=== PATIENT | male | born 1970 | race Caucasian/White ===

== ENCOUNTER 2020-02-24 09:20 | Outpatient (REF) | payer OTHER, SELFPAY | END 2020-02-24 09:21 | disposition home or self-care (01) | LOC: HO.LAB 09:20 | PROVIDERS: Visit Provider Internal Medicine | DX: Z20.828 Contact with and (suspected) exposure to other viral communicable diseases (principal) | CPT/HCPCS: 87635 ==

== ENCOUNTER 2020-03-23 13:36 | Outpatient (REF) | payer OTHER, SELFPAY | END 2020-03-23 13:37 | disposition home or self-care (01) | LOC: HO.HMGCLDS 13:36 | PROVIDERS: PCP Internal Medicine; Visit Provider Internal Medicine | DX: Z20.828 Contact with and (suspected) exposure to other viral communicable diseases (principal) | CPT/HCPCS: C9803; U0003 ==

== ENCOUNTER 2020-05-17 09:15 | Outpatient (REF) | payer OTHER, SELFPAY | END 2020-05-17 09:16 | disposition home or self-care (01) | LOC: HO.LAB 09:15 | PROVIDERS: Visit Provider Internal Medicine | DX: Z20.822 Contact with and (suspected) exposure to COVID-19 (principal) | CPT/HCPCS: 36415; C9803; U0003 ==

== ENCOUNTER 2021-04-28 09:09 | Outpatient (REF) | payer OTHER, SELFPAY | END 2021-04-28 09:10 | disposition home or self-care (01) | LOC: HO.HMGCLDS 09:09 | PROVIDERS: PCP Internal Medicine; Visit Provider Internal Medicine | DX: Z20.822 Contact with and (suspected) exposure to COVID-19 (principal) | CPT/HCPCS: C9803; U0003; U0005 ==

== ENCOUNTER 2022-05-13 08:35 | Outpatient (REF) | payer OTHER, SELFPAY ==
[2022-05-13 08:48] LABS: MANUAL DIFF FLAG NO
[2022-05-13 09:34] LABS: Basophils Percent Auto 0.6 % (0-2); Eosinophils Absolute Auto 0.1 X10*3/uL (0.0-0.4); Eosinophils Percent Auto 2.8 % (0-4); Hematocrit 43.3 % (42.0-52.0); Hemoglobin 14.4 g/dl (14.0-18.0); Imm Gran Abs Auto 0.01 X10*3/uL (0.00-0.03); Imm Gran Pct Auto 0.2 % (0.0-0.4); Lymphocytes Absolute Auto 2.3 X10*3/uL (1.2-4.9); Lymphocytes Percent Auto 48.6 % (20-40); Mean Corpuscular HGB Conc 33.3 g/dl (31.0-36.0); Mean Corpuscular Hemoglobin 29.8 pg (27.0-33.0); Mean Corpuscular Volume 89.6 fL (80.0-98.0); Mean Platelet Volume 9.1 fL (9.4-12.4); Monocytes Absolute Auto 0.5 X10*3/uL (0.1-1.2); Monocytes Percent Auto 10.7 % (2-11); Neutrophils Absolute Auto 1.7 x10*3/uL (2.0-8.3); Neutrophils Percent Auto 37.1 % (45-73); Platelet Count 214 X10*3/uL (160-400); Red Blood Count 4.83 X10*6/uL (4.60-5.80); Red Cell Distribution Width 11.9 % (11.0-16.0); White Blood Count 4.7 X10*3/uL (4.8-10.8)
[2022-05-13 09:36] LABS: Appearance Urine Clear; Color Urine Yellow; Glucose Urine UA Negative (Negative); Leukocyte Esterase Urine Negative (Negative); Nitrite Urine Negative (Negative); PH 5.5 (5.0-9.0); Specific Gravity - Urine 1.015 (1.005-1.025); Urine Blood Negative (Negative); Urine Ketones Negative (Negative); Urine Protein Negative (Neg-Trace)
[2022-05-13 10:19] LABS: Alanine Aminotransferase 31 U/L (0-40); Albumin Level 4.3 g/dL (3.5-5.0); Alkaline Phosphatase 93 U/L (39-117); Anion Gap 13 (12-20); Aspartate Amino Transferase 21 U/L (5-37); Bilirubin Total 0.6 mg/dL (0.0-1.0); Blood Urea Nitrogen 20 mg/dL (9-16); Calcium 9.6 mg/dL (8.4-10.2); Carbon Dioxide 27 mmol/L (22-29); Chloride 106 mmol/L (96-108); Cholesterol 222 mg/dL; Estimated Glomerular Filt Rate > 60; Glucose Fasting 86 mg/dL (60-99); HDL Cholesterol 41 mg/dL; LDL Cholesterol Calculated 152 mg/dl; Potassium 4.4 mmol/L (3.3-5.1); Sodium 142 mmol/L (135-145); Total Protein 7.1 g/dL (6.5-8.0); Triglycerides 148 mg/dL; Uric Acid 7.5 mg/dL (3.4-7.0)
[2022-05-13 10:38] LABS: Prostate Specific Antigen Scr 0.87 ng/mL (<0.05-4.0); TSH reflex Free T4 2.85 uIU/mL (0.32-4.0); Vitamin D 25-OH Total 30.8 ng/mL (>30)
== END 2022-05-13 08:36 | disposition home or self-care (01) ==
LOC: HO.LAB 08:35
PROVIDERS: Visit Provider Internal Medicine
DX: Z00.00 Encounter for general adult medical examination without abnormal findings (principal); Z12.5 Encounter for screening for malignant neoplasm of prostate; R30.0 Dysuria; M10.9 Gout, unspecified; E78.00 Pure hypercholesterolemia, unspecified; E55.9 Vitamin D deficiency, unspecified; I10 Essential (primary) hypertension
CPT/HCPCS: 36415; 80053; 80061; 81003; 82306; 84153; 84443; 84550; 85025

== ENCOUNTER → 2022-08-10 10:30 | Outpatient (BNVA) | payer OTHER, SELFPAY | PROVIDERS: PCP Internal Medicine; Referring Provider Internal Medicine; Visit Provider Physician Assistant | DX: Z13.89 Encounter for screening for other disorder (principal) ==

== ENCOUNTER 2022-12-19 08:10 | Outpatient (REF) | payer OTHER, SELFPAY ==
[2022-12-19 11:24] LABS: Alanine Aminotransferase 15 U/L (0-40); Albumin Level 4.5 g/dL (3.5-5.0); Alkaline Phosphatase 89 U/L (39-117); Anion Gap 13 (12-20); Aspartate Amino Transferase 19 U/L (5-37); Bilirubin Total 0.8 mg/dL (0.0-1.0); Blood Urea Nitrogen 17 mg/dL (9-16); Calcium 9.9 mg/dL (8.4-10.2); Carbon Dioxide 29 mmol/L (22-29); Chloride 105 mmol/L (96-108); Cholesterol 191 mg/dL; Estimated Glomerular Filt Rate > 60; Glucose Fasting 89 mg/dL (60-99); HDL Cholesterol 45 mg/dL; LDL Cholesterol Calculated 124 mg/dl; Potassium 4.5 mmol/L (3.3-5.1); Sodium 142 mmol/L (135-145); Total Protein 7.7 g/dL (6.5-8.0); Triglycerides 114 mg/dL; Uric Acid 7.7 mg/dL (3.4-7.0)
== END 2022-12-19 08:11 | disposition home or self-care (01) ==
LOC: HO.10HDL 08:10
PROVIDERS: Visit Provider Internal Medicine
DX: M10.9 Gout, unspecified (principal); E78.00 Pure hypercholesterolemia, unspecified
CPT/HCPCS: 36415; 80053; 80061; 84550

== ENCOUNTER 2022-12-25 14:51 | Outpatient (AMB) | payer OTHER, SELFPAY ==
--- NOTE | 2022-12-25 14:53 | A.OFFPC_ITS ---
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 Required: No Accompanied by: Self / Same As Patient Allergies No Known Allergies Allergy (Verified 12/25/22 15:17) Medication List - Last Reconciled 12/25/22 by Luis Araiza MD allopurinol 100 mg PO DAILY atorvastatin 20 mg PO BEDTIME 90 days cholecalciferol (vitamin D3) 10 mcg PO DAILY Tobacco use date assessed: 12/25/22 Dental Screening Dental Screen Date: 12/25/22 Did you have a dental visit in the last 12 months?: Yes Did you have a dental problem in the last 6 months where you did not have access to dental care?: No Was dental information given to patient?: Patient has dentist HPI hyperlipidemia, gout HPI Details Patient comes in today for his follow up visit States that he feels okay He denies any headaches but reports experiencing on and off dizziness lately, with dizziness usually occurring when he is moving about too quickly He denies any chest pains, no SOB No nausea/vomiting, no abdominal pain No change in bowel habits noted Had his follow up labs done last week - to discuss his results [facility] Medical History Gout Overweight (BMI 25.0-29.9) Pure hypercholesterolemia Surgical History S/P LASIK surgery of both eyes Family History Father Stroke Mother Hyperlipidemia Other Substance abuse Social History Household Members Other:: 2 kids Housing: House Alcohol intake: current Alcohol intake frequency: a few times a week Alcohol type: beer Patient Tobacco Use Status: Never used Tobacco e-Cigarette/Vaping Use: Never Used Second Hand Smoke Exposure: No service: No Current occupational status: employed Hearing needs: No Vision needs: No Questionnaire PHQ-9 Over the last 2 weeks, how often have you been bothered by any of the following problems? 1. Little interest or pleasure in doing things: not at all 2. Feeling down, depressed, or hopeless: not at all 3. Trouble falling or staying asleep, or sleeping too much: not at all 4. Feeling tired or having little energy: not at all 5. Poor appetite or overeating: not at all 6. Feeling bad about yourself - or that you are a failure or have let yourself or your family down: not at all 7. Trouble concentrating on things, such as reading the newspaper or watching television: not at all 8. Moving or speaking so slowly that other people could have noticed. Or the opposite - being so fidgety or restless that you have been moving around a lot more than usual: not at all 9. Thoughts that you would be better off or of hurting yourself in some way: not at all Total score: 0 Depression Screening Interpretation: Negative [id number] - PHQ-9 Billing: Yes Source: Developed by Drs. Paulo Nickerson, Vianney Bush, Peewee Hameed and colleagues, with an educational eliana from [employer]. Thrive Questionnaire Date Thrive assessed: 12/25/22 I am a: Patient What is your living situation today?: I have a steady place to live Within the past 12 months, did the food you bought not last and you didn't have the money to get more?: Never true Within the past 12 months, did you worry whether your food would run out before you got money to buy more?: Never true Do you have trouble paying for medicines?: No Do you have trouble getting transportation to medical appointments?: No Do you have trouble paying your heating and electricity bill?: No Do you have trouble taking care of your child, family member or friend?: No Do you have trouble with day-to-day activities such as bathing, preparing meals, shopping, managing finances, etc.?: No Are you currently unemployed and looking for a job?: No Are you interested in more education?: No Please select the resources that you would like help with: None Currently or been in a relationship where the following occur: no concerns reported AUDIT C Alcohol Use Questionnaire (AUDIT-C) 1. How often do you have a drink containing alcohol?: Never 3. How often do you have six or more drinks on one occasion?: Never Total Score: 0 Score Reviewed/Action Taken: Yes JOSE A-7 AMB Questionnaire JOSE A-7 Date JOSE A - 7 assessed: 12/25/22 Feeling nervous, anxious, or on edge: 0 = Not at all Not being able to stop or control worryin = Not at all Worrying too much about different things: 0 = Not at all Trouble relaxin = Not at all Being so restless that it is hard to sit still: 0 = Not at all Becoming easily annoyed or irritable: 0 = Not at all Feeling afraid as if something awful might happen: 0 = Not at all Total JOSE A-7 score (0-4 normal; 5-9 mild; 10-14 moderate; 15-21 severe): 0 Source: Developed by Drs. Paulo Nickerson, Vianney Bush, Peewee Hameed and colleagues, with an educational eliana from [employer]. Review of Systems Const Denies fatigue, Denies fever(s) and Denies headache(s) ENT Denies dysphagia, Reports dizziness (on and off lately, usually occurring when he moves about too quickly), Denies headache(s), Denies neck pain, Denies odynophagia, Denies sinus pressure and Denies sore throat Card Denies chest pain, Denies rapid heart rate, Denies irregular heart rhythm, Denies palpitations and Denies dyspnea Resp Denies chest congestion, Denies cough and Denies dyspnea GI Denies abdominal pain, Denies constipation, Denies dysphagia, Denies heartburn, Denies diarrhea, Denies nausea, Denies odynophagia and Denies vomiting Denies difficulty urinating, Denies urinary frequency and Denies urinary urgency Musc Denies back pain, Denies arthralgias and Denies neck pain Skin/Breast Denies rash Neuro Reports dizziness (on and off lately, usually occurring when he moves about too quickly), Denies headache(s) and Denies paresthesias Endo Denies fatigue and Denies palpitations Physical exam (Primary Care) Vital Signs: Last Vital Signs Pulse 50 12/25/22 14:54 BP 104/72 12/25/22 14:54 Pulse Ox 97 12/25/22 14:54 Oxygen Delivery Method Room Air 12/25/22 14:54 BMI result Body Mass Index 26.4 Tobacco/Smoking Status: Tobacco use Status Tobacco use date assessed 12/25/22 12/25/22 14:56 Patient Tobacco Use Status Never used Tobacco 12/25/22 14:56 e-Cigarette/Vaping Use Never Used 12/25/22 14:56 PHQ-9: PHQ-9 Score PHQ-9: Total score 0 12/25/22 15:23 Depression Screening Interpretation: Negative Thrive Assessment: Date of Thrive Assessment Date Thrive assessed 12/25/22 12/25/22 14:56 Currently or been in a relationship where the following occur: no concerns reported Const General: no acute distress and alert HENMT Ears: TM's normal bilaterally and EAC's normal Throat: Yes posterior oropharynx normal and Yes tonsils normal (no TP congestion) Neck Neck: Yes no lymphadenopathy and Yes supple Resp Auscultation: clear to auscultation bilaterally, no rales and no wheezes Cardio Rate: regular rate Rhythm: regular rhythm Heart sounds: no murmurs GI Palpation (GI): Soft to palpation and nontender Auscultation: normal bowel sounds Skin General skin exam: no rashes or lesions noted Extrem General: Yes no clubbing, cyanosis or edema Results Reviewed Results Reviewed: Laboratory Tests 12/19/22 08:15 Sodium 142 Potassium 4.5 Creatinine 1.17 Estimated GFR > 60 Fasting Glucose 89 Uric Acid 7.7 H Calcium 9.9 AST 19 ALT 15 Triglycerides 114 Cholesterol 191 LDL Cholesterol, Calc 124 HDL Cholesterol 45 Assessment and Plan Assessment & Plan (1) Orthostatic dizziness: Code(s): R42 - Dizziness and giddiness Plan: Advised that his blood pressure today is much lower than his previous BP readings He is NOT on any Rx that could affect his blood pressure and states that he eats and drinks well/normally with no issues Will send him for EKG and echocardiogram JOSÉ ANTONIO for further evaluation (2) Pure hypercholesterolemia: Code(s): E78.00 - Pure hypercholesterolemia, unspecified Plan: Results of his labs done last week reviewed and discussed with patient - advised that his cholesterol numbers have improved slightly from earlier this year - goal again is LDL cholesterol <100 mg/dl Reinforced low cholesterol diet Continue Atorvastatin 20 mg QD Will recheck his labs and fasting lipids in 6 months for follow up (3) Gout: Code(s): M10.9 - Gout, unspecified Qualifiers: Chronicity: acute Gout etiology: idiopathic Gout site: toe Laterality: unspecified laterality Qualified Code(s): M10.079 - Idiopathic gout, unspecified ankle and foot Plan: Has had no acute gout flares Serum uric acid was at 7.7 on his labs done last week; was previously at 7.5 Reinforced low purine diet Continue Allopurinol 100 mg QD and Colchicine 0.6 mg BID Will recheck his serum uric acid level in 6 months for follow up (4) Overweight (BMI 25.0-29.9): Code(s): E66.3 - Overweight Plan: Reinforced diet/exercise as tolerated/lose weight Plan To return in 6 months for his next annual physical examination Orders: Orders CA echo transthoracic complete 12/25/22 R42 - Dizziness and giddiness, R00.1 - Bradycardia, unspecified Complete Blood Count Auto Diff 6 Months Z00.00 - Encounter for general adult medical examination without abnormal findings, R42 - Dizziness and giddiness Comprehensive [place]. Panel Fast 6 Months E78.00 - Pure hypercholesterolemia, unspecified, Z00.00 - Encounter for general adult medical examination without abnormal findings TSH reflex Free T4 6 Months E78.00 - Pure hypercholesterolemia, unspecified, Z00.00 - Encounter for general adult medical examination without abnormal findings UA CC w/rflx Micro + Cult 6 Months R30.0 - Dysuria, Z00.00 - Encounter for general adult medical examination without abnormal findings Vitamin D 25-OH Total 6 Months E55.9 - Vitamin D deficiency, unspecified, Z00.00 - Encounter for general adult medical examination without abnormal findings Prostate Specific Antigen Scr 6 Months Z00.00 - Encounter for general adult medical examination without abnormal findings ECG 12 lead EKG 12/25/22 R42 - Dizziness and giddiness, R00.1 - Bradycardia, unspecified Lipid Panel 6 Months E78.00 - Pure hypercholesterolemia, unspecified, Z00.00 - Encounter for general adult medical examination without abnormal findings Coding Level of Care Code Est Pt Level 4 (76070) Diagnoses Orthostatic dizziness R42 Pure hypercholesterolemia E78.00 Acute idiopathic gout involving toe, unspecified laterality M10.079 Chronicity: acute Gout etiology: idiopathic Gout site: toe Laterality: unspecified laterality Overweight (BMI 25.0-29.9) E66.3
[2022-12-25 14:54] VITALS: BP 104/72; PULSE 50; O2SAT 97; BMI 26.4
== END 2022-12-25 15:33 | disposition home or self-care (01) ==
PROVIDERS: Visit Provider Internal Medicine
DX: R42 Dizziness and giddiness (principal); E78.00 Pure hypercholesterolemia, unspecified; M10.079 Idiopathic gout, unspecified ankle and foot; E66.3 Overweight
CPT/HCPCS: 99214

== ENCOUNTER → 2023-02-13 14:00 | Outpatient (REF) | payer OTHER, SELFPAY ==
--- NOTE | 2023-02-13 14:04 | CA_ITS ---
Transthoracic Echocardiogram Patient (Last, First, Middle): Jay Abdalla A Gender: Male Date of : 1970 Age: 52 Procedure Date: 02/13/2023 Procedure Type: Transthoracic Echocardiogram Location: OP Height: 187.96 cm Weight: 91.17 kg BSA: 2.18 m2 Heart Rate: 51 bpm BP: 122 / 80 mmHg Energy Efficiency Specialist: PETER Referring MD: Luis Araiza MD Symptoms: R42 - Dizziness and giddiness Study Quality: Adequate ECG Rhythm: Bradycardia Conclusions: - The left ventricular systolic function is normal. The calculated ejection fraction is 59% by biplane method. - Moderate biatrial enlargement. - There is mild calcification of the aortic valve. - No obvious valvular pathology seen on this study. Findings Left Ventricle Mildly increased left ventricular cavity size. There is normal left ventricular wall thickness. The left ventricular systolic function is normal. The calculated ejection fraction is 59% by biplane method. There is no evidence of regional wall motion abnormalities. Diastolic function is normal for age. LV peak GLS -20%. Right Ventricle Mildly increased right ventricular cavity size. There is normal right ventricular systolic function. Atria Moderate biatrial enlargement. Aortic Valve There is a normal trileaflet aortic valve. There is mild calcification of the aortic valve. There is no aortic valve stenosis. There is no aortic valve regurgitation. Mitral Valve The mitral valve appears normal. There is trace mitral valve regurgitation. There is no mitral valve stenosis. Pulmonic Valve The pulmonic valve is likely normal. Tricuspid Valve Normal tricuspid valve structure. There is mild tricuspid valve regurgitation. There is no evidence of pulmonary hypertension. Great Vessels The asc aorta is normal in size. Venous The inferior vena cava is mildly dilated and collapses greater than 50% with inspiration. Pericardium/Pleural There is no evidence of pericardial effusion. Prior Study Comparison No significant change compared to prior study dated: 03/10/2015. Enlarged LV, atrial described in prior study. Recommendations, Care & Conclusions No obvious valvular pathology seen on this study. Measurements 2D Linear Measurements IVSd: 0.83 0.6-0.9/0.6-1.0 cm LVIDd: 6.29 3.9-5.3/4.2-5.9 cm LVIDd Index: 2.89 2.4-3.2/2.2-3.1 cm/m2 LVIDs: 3.84 2.0-3.6 cm LVPWd: 0.77 0.7-1.1 cm LA Diam: 4.70 2.7-3.8/3.0-4.0 cm LAIDs Index: 2.16 1.5-2.3 cm/m2 LV Mass: 252.78 67-162/88-224 g LV Mass Index: 115.95 43-95/49-115 g/m2 LVOT Diam: 2.30 3.0+(-)1.3 cm 2D Systolic Function EF 4C: 59.20 >55% EF 2C: 59.50 >55% EF BiP: 59.20 >55% Mitral Valve MV Pk E: 0.70 MV PK A: 0.67 MV Decel Time: 335.00 E/A: 1.10 E'Lateral: 11.20 E'Medial: 8.49 E/E' Med: 8.30 E/E' Lat: 6.30 PHT: 98.00 MVA PHT: 2.24 Decel Sterling: 2.10 Aortic Valve AoV Pk Terry: 1.93 AoV Mn Terry: 1.26 AoV VTI: 0.44 AoV Pk Grad: 15.00 Aov Mn Grad: 8.00 KATELYN Cont.VTI: 3.56 LVOT LVOT Pk Terry: 1.84 LVOT Mn Terry: 1.11 LVOT VTI: 0.38 LVOT Pk Grad: 14.00 LVOT Mn Grad: 6.00 LVOT Diam: 2.30 LVOT Area: 4.15 Diastolic Function MV Pk E: 0.70 MV Pk A: 0.67 E/A: 1.10 E'Medial: 8.49 E/E' Med: 8.30 E' Laterial: 11.20 E/E' Lat: 6.30 Right Ventricle TAPSE (mm): 29.50 TVS' Terry: 13.90 Tricuspid Valve TR Pk Terry: 2.59 TR Pk Grad: 27.00 RA Press: 8.00 RVSP: 35.00 Great Vessels Aorta Sinus of Valsalva: 3.80 2.0-3.5 cm Ao Asc: 3.60 2.1-3.4 cm Pulmonary Valve PV Pk Terry: 1.18 Peak PV Grad: 6.00 Updated in Other Vendor System with Status of Final Evens Calvin MD electronically signed on 02/13/2023 3:46:42 PM with status of Final
== END ==
LOC: HO.CARD 14:00
PROVIDERS: Visit Provider Internal Medicine
DX: R00.1 Bradycardia, unspecified (principal); R42 Dizziness and giddiness
CPT/HCPCS: 93005; 93306; 93356

== ENCOUNTER → 2023-02-13 14:04 | Outpatient (BNV) | payer OTHER, SELFPAY | PROVIDERS: Visit Provider Internal Medicine | DX: I36.1 Nonrheumatic tricuspid (valve) insufficiency (principal); I35.8 Other nonrheumatic aortic valve disorders | CPT/HCPCS: 93306 ==

== ENCOUNTER 2023-06-22 12:52 | Outpatient (AMB) | payer OTHER, SELFPAY ==
[2023-06-22 12:58] VITALS: BP 124/80; PULSE 52; O2SAT 97; BMI 27.3
--- NOTE | 2023-06-22 12:58 | MHC.PC.OV ---
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 Accompanied by: Self / Same As Patient Allergies No Known Allergies Allergy (Verified 06/22/23 13:16) Medication List - Last Reconciled 06/22/23 by Luis Araiza MD allopurinol 100 mg PO DAILY atorvastatin 20 mg PO BEDTIME 90 days cholecalciferol (vitamin D3) 10 mcg PO DAILY Tobacco use date assessed: 06/22/23 Dental Screening Dental Screen Date: 06/22/23 Did you have a dental visit in the last 12 months?: Yes Did you have a dental problem in the last 6 months where you did not have access to dental care?: No Was dental information given to patient?: Patient has dentist HPI pe HPI Details Patient comes in today for his annual physical examination States that he feels okay and that his previous dizziness seems to have subsided and have not been bothering him lately He denies any headaches Denies any chest pains, no SOB No nausea/vomiting, no abdominal pain No change in bowel habits noted He denies any acute urinary symptoms Relates that he has been experiencing recurrent pain and discomfort over his right shoulder and that this has been bothering him for a while now and would like to see someone to help get this checked out and addressed He does not recall any history of injury or trauma to his shoulder He had a Cologuard test done last year on 08/31/2022 that came out negative States that he went in to see GI as referred and was thinking he was going to be scheduled for a regular colonoscopy but was instead offered another Cologuard test as he reportedly has no increased risk factors He was not able to get his follow up labs done prior to his appointment today - admits that he was not even aware he had labs ordered [facility] Medical History Overweight (BMI 25.0-29.9) Pure hypercholesterolemia Gout Surgical History S/P LASIK surgery of both eyes Family History Father Stroke Mother Hyperlipidemia Other Substance abuse Social History Household Members Other:: 2 kids Housing: House Alcohol intake: current Alcohol intake frequency: a few times a week Alcohol type: beer Patient Tobacco Use Status: Never used Tobacco e-Cigarette/Vaping Use: Never Used Second Hand Smoke Exposure: No service: No Current occupational status: employed Cognitive needs: No Hearing needs: No Vision needs: No Questionnaire PHQ-9 Over the last 2 weeks, how often have you been bothered by any of the following problems? 1. Little interest or pleasure in doing things: not at all 2. Feeling down, depressed, or hopeless: not at all 3. Trouble falling or staying asleep, or sleeping too much: not at all 4. Feeling tired or having little energy: not at all 5. Poor appetite or overeating: not at all 6. Feeling bad about yourself - or that you are a failure or have let yourself or your family down: not at all 7. Trouble concentrating on things, such as reading the newspaper or watching television: not at all 8. Moving or speaking so slowly that other people could have noticed. Or the opposite - being so fidgety or restless that you have been moving around a lot more than usual: not at all 9. Thoughts that you would be better off or of hurting yourself in some way: not at all Total score: 0 Depression Screening Interpretation: Negative Depression Screening Done: Yes 72350 - PHQ-9 Billing: Yes Source: Developed by Drs. Paulo Nickerson, Vianney Bush, Peewee Hameed and colleagues, with an educational eliana from [employer]. Thrive Questionnaire Date Thrive assessed: 06/22/23 I am a: Patient What is your living situation today?: I have a steady place to live Within the past 12 months, did the food you bought not last and you didn't have the money to get more?: Never true Within the past 12 months, did you worry whether your food would run out before you got money to buy more?: Never true Do you have trouble paying for medicines?: No Do you have trouble getting transportation to medical appointments?: No Do you have trouble paying your heating and electricity bill?: No Do you have trouble taking care of your child, family member or friend?: No Do you have trouble with day-to-day activities such as bathing, preparing meals, shopping, managing finances, etc.?: No Are you currently unemployed and looking for a job?: No Are you interested in more education?: No Please select the resources that you would like help with: None Currently or been in a relationship where the following occur: no concerns reported THRIVE Score: 0 AUDIT C Alcohol Use Questionnaire (AUDIT-C) 1. How often do you have a drink containing alcohol?: Never 3. How often do you have six or more drinks on one occasion?: Never Total Score: 0 Score Reviewed/Action Taken: Yes JOSE A-7 AMB Questionnaire JOSE A-7 Date JOSE A - 7 assessed: 06/22/23 Feeling nervous, anxious, or on edge: 0 = Not at all Not being able to stop or control worryin = Not at all Worrying too much about different things: 0 = Not at all Trouble relaxin = Not at all Being so restless that it is hard to sit still: 0 = Not at all Becoming easily annoyed or irritable: 0 = Not at all Feeling afraid as if something awful might happen: 0 = Not at all Total JOSE A-7 score (0-4 normal; 5-9 mild; 10-14 moderate; 15-21 severe): 0 Source: Developed by Drs. aPulo Nickerson, Vianney Bush, Peewee Hameed and colleagues, with an educational eliana from [employer]. Review of Systems Const Denies chills, Denies fatigue, Denies fever(s), Denies headache(s), Denies malaise and Denies weakness Eyes Denies blurry vision, Denies change in vision, Denies irritation and Denies itchy eyes ENT Denies dysphagia, Denies dizziness, Denies otalgia, Denies headache(s), Denies nasal congestion, Denies neck pain, Denies odynophagia and Denies sore throat Card Denies chest pain, Denies rapid heart rate, Denies irregular heart rhythm, Denies palpitations and Denies dyspnea Resp Denies chest congestion, Denies cough, Denies dyspnea and Denies wheezing GI Denies abdominal pain, Denies bloating, Denies constipation, Denies dysphagia, Denies heartburn, Denies diarrhea, Denies nausea, Denies odynophagia and Denies vomiting Denies hematuria, Denies difficulty urinating, Denies dysuria, Denies urinary frequency and Denies urinary urgency Musc Denies back pain, Reports arthralgias (on and off in the right shoulder), Denies joint swelling, Denies muscle weakness and Denies neck pain Skin/Breast Denies change in pigmentation, Denies lesions, Denies rash and Denies unusual bruising Neuro Denies dizziness, Denies headache(s), Denies paresthesias and Denies weakness Endo Denies fatigue and Denies palpitations Aller/Immun Denies itchy eyes and Denies wheezing Physical exam (Primary Care) Vital Signs: Last Vital Signs Pulse 52 06/22/23 12:58 BP 124/80 06/22/23 12:58 Pulse Ox 97 06/22/23 12:58 Oxygen Delivery Method Room Air 06/22/23 12:58 BMI result Body Mass Index 27.3 Tobacco/Smoking Status: Tobacco use Status Tobacco use date assessed 06/22/23 06/22/23 13:05 Patient Tobacco Use Status Never used Tobacco 06/22/23 13:05 e-Cigarette/Vaping Use Never Used 06/22/23 13:05 PHQ-9: PHQ-9 Score PHQ-9: Total score 0 06/22/23 13:05 Depression Screening Interpretation: Negative Thrive Assessment: Date of Thrive Assessment Date Thrive assessed 06/22/23 06/22/23 13:05 Currently or been in a relationship where the following occur: no concerns reported Const General: no acute distress, alert and awake Orientation/consciousness: patient oriented x3 HENMT Head: Yes normocephalic and Yes atraumatic Ears: external ears normal, TM's normal bilaterally and EAC's normal General nose exam: No nasal discharge present Face and sinus: Yes normal facial exam and Yes sinuses nontender Teeth and gingiva: dentition normal Throat: Yes posterior oropharynx normal and Yes tonsils normal (no TP congestion) Eyes Eyelids: Yes eyelids normal Conjunctivae: conjunctivae normal Pupils: Equal, round and reactive pupils present EOM: EOMs intact bilaterally Neck Neck: Yes no lymphadenopathy and Yes supple Thyroid: Thyroid normal Resp Auscultation: clear to auscultation bilaterally, no rales and no wheezes Cardio Rate: regular rate Rhythm: regular rhythm Heart sounds: no murmurs GI Palpation (GI): Soft to palpation, nontender and No hepatosplenomegaly present Auscultation: normal bowel sounds General: Yes no CVA tenderness Back/Spine/Pelvis Back: no CVA tenderness Thoracic/Lumbar Spine: thoracic and lumbar spine normal to inspection Skin Lesions: no lesions Rashes: no rashes Neuro General: patient oriented x3, moves all extremities, no focal motor deficits and CN's II-XI intact bilaterally Cranial nerves: Yes Equal, round and reactive pupils present Cognition (Neuro): normal cognition Gait exam (Neuro): Normal gait present Extrem General: Yes no clubbing, cyanosis or edema Right upper extremity: shoulder/upper arm Details: tenderness Location: over the subacromial bursa Assessment and Plan Assessment & Plan (1) Annual physical exam: Code(s): Z00.00 - Encounter for general adult medical examination without abnormal findings Plan: Check labs - he is advised that his orders are still valid; states that he will try to get them done tomorrow morning He had a negative Cologuard test done last year on 08/31/2022 and with no increased risk factors, would not need a repeat Cologuard or a regular colonoscopy for a couple of years (2024 or 2025) (2) Orthostatic dizziness: Code(s): R42 - Dizziness and giddiness Plan: Currently appears resolved He was previously sent for EKG and echocardiogram for further evaluation of his recurrent dizziness His EKG came out normal, with mild bradycardia but no acute ST-T wave changes His echocardiogram done on 02/13/2023 revealed a normal LV systolic function, with calculated EF at 59%, with moderate biatrial enlargement and mild calcification of the aortic valve with NO other valvular pathology seen (3) Biatrial enlargement: Code(s): I51.7 - Cardiomegaly Plan: Will refer him to cardiology for further evaluation of his moderate biatrial enlargement seen incidentally on his echocardiogram in February 2023 Discussed possible etiologies include CAD, HTN, valvular heart disease and idiopathic dilated cardiomyopathy as well as rheumatic heart disease, isolated mitral insufficiency and constrictive pericarditis Patient is currently asymptomatic and his echocardiogram rules out several of the conditions mentioned above Have advised that I will refer him to cardiology for further evaluation and management (4) Pure hypercholesterolemia: Code(s): E78.00 - Pure hypercholesterolemia, unspecified Plan: Reinforced low cholesterol diet - goal is again an LDL cholesterol <100 mg/dl Will have patient go and get his follow up labs done JOSÉ ANTONIO Continue Atorvastatin 20 mg QD Will recheck his labs and fasting lipids in 6 months for follow up (5) Impingement of right shoulder: Code(s): M25.811 - Other specified joint disorders, right shoulder Plan: Will refer him to physical therapy for further evaluation and management Will also refer him to orthopedics for further evaluation and management of his recurrent right shoulder pain, which has been bothering him for over a year now (6) Gout: Code(s): M10.9 - Gout, unspecified Qualifiers: Gout site: toe Gout etiology: idiopathic Chronicity: acute Laterality: unspecified laterality Qualified Code(s): M10.079 - Idiopathic gout, unspecified ankle and foot Plan: Has had no acute gout flares Serum uric acid was at 7.7 on his labs done previously Reinforced low purine diet Continue Allopurinol 100 mg QD and Colchicine 0.6 mg BID Will recheck his serum uric acid level in 6 months for follow up (7) Overweight (BMI 25.0-29.9): Code(s): E66.3 - Overweight Plan: Reinforced diet/exercise as tolerated/lose weight Plan Follow up in 6 months Orders: Orders Comprehensive [place]. Panel Fast 6 Months E78.00 - Pure hypercholesterolemia, unspecified Lipid Panel 6 Months E78.00 - Pure hypercholesterolemia, unspecified Uric Acid 6 Months M10.9 - Gout, unspecified PT Evaluation and Treatment Today M25.811 - Other specified joint disorders, right shoulder Referrals Cardiology Referral I51.7 - Cardiomegaly Orthopedics Referral M25.811 - Other specified joint disorders, right shoulder Coding Level of Care Code Est Pt Prev Care 40-64y(87675) Diagnoses Annual physical exam Z00.00 Orthostatic dizziness R42 Biatrial enlargement I51.7 Pure hypercholesterolemia E78.00 Impingement of right shoulder M25.811 Acute idiopathic gout involving toe, unspecified laterality M10.079 Gout site: toe Gout etiology: idiopathic Chronicity: acute Laterality: unspecified laterality Overweight (BMI 25.0-29.9) E66.3
== END 2023-06-22 13:36 | disposition home or self-care (01) ==
PROVIDERS: PCP Internal Medicine; Visit Provider Internal Medicine
DX: Z00.00 Encounter for general adult medical examination without abnormal findings (principal); R42 Dizziness and giddiness; I51.7 Cardiomegaly; E78.00 Pure hypercholesterolemia, unspecified; M25.811 Other specified joint disorders, right shoulder; M10.079 Idiopathic gout, unspecified ankle and foot; E66.3 Overweight
CPT/HCPCS: 99396

== ENCOUNTER 2023-07-04 08:21 | Outpatient (REF) | payer OTHER, SELFPAY ==
[2023-07-04 08:40] LABS: MANUAL DIFF FLAG NO
[2023-07-04 09:14] LABS: Basophils Percent Auto 0.7 % (0-2); Eosinophils Absolute Auto 0.1 X10*3/uL (0.0-0.4); Eosinophils Percent Auto 1.9 % (0-4); Hematocrit 42.9 % (42.0-52.0); Hemoglobin 14.5 g/dl (14.0-18.0); Imm Gran Abs Auto 0.01 X10*3/uL (0.00-0.03); Imm Gran Pct Auto 0.2 % (0.0-0.4); Lymphocytes Absolute Auto 1.9 X10*3/uL (1.2-4.9); Lymphocytes Percent Auto 46.3 % (20-40); Mean Corpuscular HGB Conc 33.8 g/dl (31.0-36.0); Mean Corpuscular Hemoglobin 30.2 pg (27.0-33.0); Mean Corpuscular Volume 89.4 fL (80.0-98.0); Mean Platelet Volume 9.1 fL (9.4-12.4); Monocytes Absolute Auto 0.4 X10*3/uL (0.1-1.2); Monocytes Percent Auto 8.8 % (2-11); Neutrophils Absolute Auto 1.8 x10*3/uL (2.0-8.3); Neutrophils Percent Auto 42.1 % (45-73); Platelet Count 208 X10*3/uL (160-400); White Blood Count 4.2 X10*3/uL (4.8-10.8)
[2023-07-04 09:54] LABS: Appearance Urine Clear; Color Urine Yellow; Glucose Urine UA Negative (Negative); Leukocyte Esterase Urine Negative (Negative); Nitrite Urine Negative (Negative); PH 5.5 (5.0-9.0); Urine Blood Negative (Negative); Urine Ketones Negative (Negative); Urine Protein Negative (Neg-Trace)
[2023-07-04 09:58] LABS: Alanine Aminotransferase 18 U/L (0-40); Albumin Level 4.3 g/dL (3.5-5.0); Alkaline Phosphatase 91 U/L (39-117); Anion Gap 11 (12-20); Aspartate Amino Transferase 21 U/L (5-37); Bilirubin Total 0.8 mg/dL (0.0-1.0); Blood Urea Nitrogen 19 mg/dL (9-16); Calcium 9.8 mg/dL (8.4-10.2); Carbon Dioxide 28 mmol/L (22-29); Chloride 105 mmol/L (96-108); Cholesterol 177 mg/dL (<200); Estimated Glomerular Filt Rate > 60; Glucose Fasting 89 mg/dL (60-99); HDL Cholesterol 38 mg/dL (>40); LDL Cholesterol Calculated 117 mg/dL (<100); Potassium 4.2 mmol/L (3.3-5.1); Sodium 140 mmol/L (135-145); Total Protein 7.4 g/dL (6.5-8.0); Triglycerides 113 mg/dL (<150)
[2023-07-04 10:09] LABS: Prostate Specific Antigen Scr 0.85 ng/mL (<0.05-4.0)
[2023-07-04 10:16] LABS: TSH reflex Free T4 1.67 uIU/mL (0.32-4.0); Vitamin D 25-OH Total 37.1 ng/mL (>30)
== END 2023-07-04 08:22 | disposition home or self-care (01) ==
LOC: HO.LAB 08:21
PROVIDERS: PCP Internal Medicine; Visit Provider Internal Medicine
DX: Z00.00 Encounter for general adult medical examination without abnormal findings (principal); Z12.5 Encounter for screening for malignant neoplasm of prostate; R42 Dizziness and giddiness; E78.00 Pure hypercholesterolemia, unspecified; R30.0 Dysuria; E55.9 Vitamin D deficiency, unspecified
CPT/HCPCS: 36415; 80053; 80061; 81003; 82306; 84153; 84443; 85025

== ENCOUNTER 2023-07-26 06:23 | Outpatient (REF) | payer OTHER, SELFPAY | END 2023-07-26 06:24 | disposition home or self-care (01) | LOC: HO.HOSX 06:23 | PROVIDERS: Visit Provider Physician Assistant | DX: Z13.89 Encounter for screening for other disorder (principal) ==

== ENCOUNTER 2023-08-07 07:00 | Outpatient (RCR) | payer OTHER, SELFPAY ==
--- NOTE | 2023-07-16 12:37 | MHC.PT.EP ---
[facility] [place] [facility] [place] [facility] [place] [facility] [address] Jim Odonnell [address] [phone] F: [phone] F: [phone] F: [phone] F: [phone] Physical Therapy Plan of Care Date of Evaluation: 07/16/23 Date of Surgery: Diagnosis: RIGHT SHOULDER IMPINGEMENT Assessment: 53 YO MALE REF TO PT FOR Rt SHOULDER IMPINGEMENT- HE DENIES TRAUMA/INJURY. 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 HE ENJOYS RUNNING/GOLFING/RESISTIVE EXER. HE IS RIGHT HAND DOMINANT. THE Pt HAS Rt SH SORENESS W END RANGE SH FLEX AND IR POSTERIORLY- HE HAS LIMITED CERV AROM AND (+) SOFT TISSUE IRRIT IN Rt UT/ SCAP REGION AND CERV PS MM. HE WOULD BENEFIT FROM PT TO ADDRESS THE ABOVE FINDINGS, REDUCE CERVICAL AND Rt SH COMPONENTS AND DEV SELF-SX MGMT TECHN. 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 Manual therapy to restore motion and function. Therapeutic exercise to improve strength and flexibility. Neuromuscular re-education for posture and balance. Therapeutic activities to return to functional activities of daily living. Electronically signed by: QUYEN BAIN,PT Please sign and return to therapist. Thank you for your referral.
--- NOTE | 2023-09-28 09:29 | MHC.PT.DC ---
[facility] [place] Office [place] [facility] [place] [facility] [address] Jim Odonnell 140 [facility] [phone] F: [phone] F: [phone] F: [phone] F: [phone] Physical Therapy Discharge Report Diagnosis: RIGHT SHOULDER IMPINGEMENT Date of Surgery: Date of Evaluation: 07/16/23 Date of Discharge: 09/28/23 Treatments to Date: 7 Cancellations to Date: 0 No Shows to Date: 0 Discharge Status: Achieved Goals Improved Function Independent with HEP Discharge Summary: CLYDE PROGRESSED NICELY IN PT- HE HAS BEEN ABLE TO RESUME ADLS, AND GOLF, W/O EXACERBATING SXS. HE IS INDEP AND COMPLIANT W HEP - HE MET HIS PT GOALS AND IS D/C THIS DATE. Electronically signed by: QUYEN BAIN,PT Please sign and return to therapist. Thank you for your referral.
== END 2023-09-28 09:31 | disposition home or self-care (01) ==
LOC: HO.PT 07:00
PROVIDERS: PCP Internal Medicine; Visit Provider Internal Medicine
DX: M25.811 Other specified joint disorders, right shoulder (principal)
CPT/HCPCS: 97110; 97140; 97162

== ENCOUNTER → 2023-08-17 11:18 | Outpatient (BNV) | payer OTHER, SELFPAY | PROVIDERS: PCP Internal Medicine; Visit Provider Internal Medicine | DX: Z85.3 Personal history of malignant neoplasm of breast (principal) | CPT/HCPCS: 99203 ==

== ENCOUNTER 2023-08-28 08:14 | Outpatient (AMB) | payer OTHER, SELFPAY ==
[2023-08-28 08:31] VITALS: BP 120/68; PULSE 51; O2SAT 98; BMI 25.7
--- NOTE | 2023-08-28 08:31 | A.OFFVIS_ITS ---
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 Patient himself does not have any history of cardiac issues including coronary disease,myocardial infarction or cardiomyopathy. It seems that he was getting orthostatic dizziness type symptoms. That apparently workup. Otherwise, no anginal-type symptoms or in fact anything cardiac related. He states he is extremely active at baseline including several activities like walking out in the gym, bicycling, hiking, golfing essentially every day. No history of obstructive sleep apnea. [facility] Medical History Overweight (BMI 25.0-29.9) Pure hypercholesterolemia Gout Surgical History S/P LASIK surgery of both eyes Family History Father Stroke Mother Hyperlipidemia Other Substance abuse Social History (Updated 08/17/23 @ 11:42 by Chelsey Mtz) Household Members: Spouse and Family Household Members Other:: 2 kids Housing: House Alcohol intake: current Alcohol intake frequency: a few times a week Alcohol type: beer Patient Tobacco Use Status: Never used Tobacco e-Cigarette/Vaping Use: Never Used Second Hand Smoke Exposure: No service: No Current occupational status: employed Cognitive needs: No Hearing needs: No Vision needs: No Review of Systems Const Denies weakness ENT Denies dizziness Card Denies chest pain, Denies chest pain with activity, Denies syncope, Denies rapid heart rate, Denies pedal edema, Denies edema, Denies leg edema, Denies lightheadedness, Denies palpitations, Denies dyspnea, Denies dyspnea on exertion and Denies orthopnea Resp Denies cough, Denies dyspnea and Denies dyspnea on exertion GI Denies hematochezia and Denies change in stool character Musc Denies abnormal gait, Denies muscle cramps, Denies muscle weakness, Denies numbness, Denies radiating pain into limb and Denies tingling Neuro Denies abnormal gait, Denies dizziness, Denies syncope, Denies numbness, Denies tingling and Denies weakness Endo Denies palpitations Physical Exam Vital Signs: Last Vital Signs Pulse 51 08/28/23 08:31 BP 120/68 08/28/23 08:31 Pulse Ox 98 08/28/23 08:31 Oxygen Delivery Method Room Air 08/28/23 08:31 BMI result Body Mass Index 25.7 Const General: comfortable and no acute distress Orientation/consciousness: patient oriented x3 HEENT Other: Unremarkable Head: Yes normal to inspection Neck Neck: Yes normal visual inspection Chest Chest palpation & inspection: normal inspection of the chest Resp Auscultation: clear to auscultation bilaterally Cardio Palpation: normal PMI Heart sounds: S1 normal heart sound present, S2 normal heart sound present, no gallops, no murmurs and no rubs GI Palpation (GI): Soft to palpation Back/Spine/Pelvis Other: unremarkable Skin General skin exam: no rashes or lesions noted Neuro General: patient oriented x3 Extrem General: Yes normal to inspection Psych Mental Status: mental status grossly normal Office Procedures EKG Details: EKG with sinus bradycardia at 46/[place]. [id number], Complete Assessment & Plan Assessment & Plan (1) Dizziness: Code(s): R42 - Dizziness and giddiness Category: Medical (2) Bradycardia: Code(s): R00.1 - Bradycardia, unspecified Category: Medical (3) Biatrial enlargement: Code(s): I51.7 - Cardiomegaly Category: Medical Plan Baseline EKG had sinus bradycardia; less likely low atrial or junctional. Echocardiogram with LVEF of 59%. Normal peak global longitudinal strain. Normal diastolic function. Moderate biatrial enlargement. Of note, even a prior echocardiogram from 2015 had biatrial enlargement. Both the sinus bradycardia as well as biatrial enlargement could be related to athletic lifestyle. The dizziness itself seems orthostatic. We will get an Holter monitor for further evaluation. Also perform an exercise stress test to assess chronotropic competence. Follow-up after the above. Orders: Orders CA stress test Today R00.1 - Bradycardia, unspecified, R42 - Dizziness and giddiness ECG 3 day holter monitor Today R42 - Dizziness and giddiness
== END 2023-08-28 08:56 | disposition home or self-care (01) ==
PROVIDERS: Visit Provider Internal Medicine
DX: R42 Dizziness and giddiness (principal); R00.1 Bradycardia, unspecified; I51.7 Cardiomegaly
CPT/HCPCS: 93010; 99214

== ENCOUNTER → 2023-08-28 08:14 | Outpatient (BNVA) | payer OTHER, SELFPAY | PROVIDERS: Visit Provider Internal Medicine | DX: R42 Dizziness and giddiness (principal); R00.1 Bradycardia, unspecified; I51.7 Cardiomegaly | CPT/HCPCS: 93005 ==

== ENCOUNTER → 2023-09-07 09:30 | Outpatient (REF) | payer OTHER, SELFPAY ==
--- NOTE | 2023-09-07 09:34 | CA_ITS ---
Acquisition Time: 2023-09-07 09:44:36 Total Exercise Time: 00:14:53 Test Indications: SYNCOPE Medications: SEE H Protocol: SHONDA Max HR: 160 BPM 96% of Pred: 165 BPM Max BP: 170/078 mmHG Max Work Load: 17.2 METS Exercise stress test exercise 14 min 53 sec of Shonda protocol achieving 96% MPHR, 17.2 METS, wihtuot dizizness, shortness of breath, chest discomfort, without arrhythmias, with normotensive response to exercise, with normal chornotropic response, without EKG changes. Test reviewed with Dr. Simpson. Referred By: Evens Simpson Overread By: Alana Clemons
--- NOTE | 2023-09-07 09:34 | HM_ITS ---
Conclusion: 1. Patient was monitored for total period of 3 days and 18 hours 2. Baseline was normal sinus rhythm with average heart of 61 beats per minute 3. No significant pauses noted with frequent sinus bradycardia noted with 52% of time heart rate below 60 beats per minute 4. Rare ectopy noted 5. No patient reported events MTDD
== END ==
LOC: HO.CARD 09:30
PROVIDERS: PCP Internal Medicine; Visit Provider Internal Medicine
DX: R00.1 Bradycardia, unspecified (principal); R42 Dizziness and giddiness
CPT/HCPCS: 93017; 93242

== ENCOUNTER → 2023-09-07 09:34 | Outpatient (BNV) | payer OTHER, SELFPAY | PROVIDERS: PCP Internal Medicine; Visit Provider Nurse Practitioner | DX: R00.1 Bradycardia, unspecified (principal) | CPT/HCPCS: 93016; 93018; 93244 ==

== ENCOUNTER 2024-01-04 13:32 | Outpatient (AMB) | payer OTHER, SELFPAY ==
[2024-01-04 13:38] VITALS: BP 118/78; PULSE 59; O2SAT 96; BMI 26.1
--- NOTE | 2024-01-04 13:38 | A.OFFPC_ITS ---
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 Accompanied by: Self / Same As Patient Allergies No Known Allergies Allergy (Verified 01/04/24 13:45) Medication List - Last Reconciled 01/04/24 by Luis Araiza MD allopurinol 100 mg PO DAILY atorvastatin 20 mg PO BEDTIME 90 days cholecalciferol (vitamin D3) 10 mcg PO DAILY Tobacco use date assessed: 01/04/24 Dental Screening Dental Screen Date: 01/04/24 Did you have a dental visit in the last 12 months?: Yes Did you have a dental problem in the last 6 months where you did not have access to dental care?: No Was dental information given to patient?: Patient has dentist HPI hyperlipidemia, gout HPI Details Patient comes in today for his follow up visit States that he feels okay He denies any headaches or dizziness Denies any chest pains, no SOB No nausea/vomiting, no abdominal pain No change in bowel habits noted He was seen by hematology for his leucopenia a few months ago and was advised that in the absence of any concerning symptoms and negative work ups, he has chronic leucopenia, which is benign and he does not need any further work ups and can just have his CBC monitored routinely going forward He was also seen by cardiology a few months ago for the biatrial enlargement seen on his recent echocardiogram He had stress testing and extended Holter monitoring done a few months ago, both of which came out normal He has a follow up appointment with cardiology in a few weeks to discuss any further recommendations He would also like to know how he did on his labs done back in June 2023, a few weeks after he was last seen for his annual [facility] Medical History (Updated 01/04/24 @ 14:05 by Luis Araiza MD) Biatrial enlargement Leucopenia Overweight (BMI 25.0-29.9) Pure hypercholesterolemia Gout Surgical History S/P LASIK surgery of both eyes Family History Father Stroke Mother Hyperlipidemia Other Substance abuse Social History Household Members: Spouse and Family Household Members Other:: 2 kids Housing: House Alcohol intake: current Alcohol intake frequency: a few times a week Alcohol type: beer Patient Tobacco Use Status: Never used Tobacco e-Cigarette/Vaping Use: Never Used Second Hand Smoke Exposure: No service: No Current occupational status: employed Cognitive needs: No Hearing needs: No Vision needs: No Questionnaire PHQ-9 Over the last 2 weeks, how often have you been bothered by any of the following problems? 1. Little interest or pleasure in doing things: not at all 2. Feeling down, depressed, or hopeless: not at all 3. Trouble falling or staying asleep, or sleeping too much: not at all 4. Feeling tired or having little energy: not at all 5. Poor appetite or overeating: not at all 6. Feeling bad about yourself - or that you are a failure or have let yourself or your family down: not at all 7. Trouble concentrating on things, such as reading the newspaper or watching television: not at all 8. Moving or speaking so slowly that other people could have noticed. Or the opposite - being so fidgety or restless that you have been moving around a lot more than usual: not at all 9. Thoughts that you would be better off or of hurting yourself in some way: not at all Total score: 0 Depression Screening Interpretation: Negative Depression Screening Done: Yes 13442 - PHQ-9 Billing: Yes Source: Developed by Drs. Paulo Nickerson, Vianney Bush, Peewee Hameed and colleagues, with an educational eliana from [employer]. Thrive Questionnaire Date Thrive assessed: 01/04/24 I am a: Patient What is your living situation today?: I have a steady place to live Within the past 12 months, did the food you bought not last and you didn't have the money to get more?: Never true Within the past 12 months, did you worry whether your food would run out before you got money to buy more?: Never true Do you have trouble paying for medicines?: No Do you have trouble getting transportation to medical appointments?: No Do you have trouble paying your heating and electricity bill?: No Do you have trouble taking care of your child, family member or friend?: No Do you have trouble with day-to-day activities such as bathing, preparing meals, shopping, managing finances, etc.?: No Are you currently unemployed and looking for a job?: No Are you interested in more education?: No Please select the resources that you would like help with: None Currently or been in a relationship where the following occur: No concerns reported THRIVE Score: 0 AUDIT C Alcohol Use Questionnaire (AUDIT-C) 1. How often do you have a drink containing alcohol?: Never 3. How often do you have six or more drinks on one occasion?: Never Total Score: 0 Score Reviewed/Action Taken: Yes JOSE A-7 AMB Questionnaire JOSE A-7 Date JOSE A - 7 assessed: 01/04/24 Feeling nervous, anxious, or on edge: 0 = Not at all Not being able to stop or control worryin = Not at all Worrying too much about different things: 0 = Not at all Trouble relaxin = Not at all Being so restless that it is hard to sit still: 0 = Not at all Becoming easily annoyed or irritable: 0 = Not at all Feeling afraid as if something awful might happen: 0 = Not at all Total JOSE A-7 score (0-4 normal; 5-9 mild; 10-14 moderate; 15-21 severe): 0 Source: Developed by Drs. Paulo Nickerson, Vianney Bush, Peewee Hameed and colleagues, with an educational eliana from [employer]. Review of Systems Const Denies chills, Denies fatigue, Denies fever(s) and Denies headache(s) ENT Denies dysphagia, Denies dizziness, Denies otalgia, Denies headache(s), Denies neck pain, Denies odynophagia and Denies sore throat Card Denies chest pain, Denies irregular heart rhythm, Denies palpitations and Denies dyspnea Resp Denies cough, Denies dyspnea and Denies wheezing GI Denies abdominal pain, Denies constipation, Denies dysphagia, Denies heartburn, Denies diarrhea, Denies nausea, Denies odynophagia and Denies vomiting Denies difficulty urinating, Denies dysuria and Denies urinary frequency Musc Denies back pain, Denies arthralgias (states that his previous right shoulder pain has improved with PT) and Denies neck pain Skin/Breast Denies rash Neuro Denies dizziness, Denies headache(s) and Denies paresthesias Endo Denies fatigue and Denies palpitations Aller/Immun Denies wheezing Physical exam (Primary Care) Vital Signs: Last Vital Signs Pulse 59 01/04/24 13:38 BP 118/78 01/04/24 13:38 Pulse Ox 96 01/04/24 13:38 Oxygen Delivery Method Room Air 01/04/24 13:38 BMI result Body Mass Index 26.1 Tobacco/Smoking Status: Tobacco use Status Tobacco use date assessed 01/04/24 01/04/24 13:43 Patient Tobacco Use Status Never used Tobacco 01/04/24 13:43 e-Cigarette/Vaping Use Never Used 01/04/24 13:43 PHQ-9: PHQ-9 Score PHQ-9: Total score 0 01/04/24 13:43 Depression Screening Interpretation: Negative Thrive Assessment: Date of Thrive Assessment Date Thrive assessed 01/04/24 01/04/24 13:43 Currently or been in a relationship where the following occur: No concerns reported Const General: no acute distress and alert HENMT Ears: TM's normal bilaterally and EAC's normal Throat: Yes posterior oropharynx normal and Yes tonsils normal (no TP congestion) Neck Neck: Yes no lymphadenopathy and Yes supple Thyroid: Thyroid normal Resp Auscultation: clear to auscultation bilaterally, no rales and no wheezes Cardio Rate: regular rate Rhythm: regular rhythm Heart sounds: no murmurs GI Palpation (GI): Soft to palpation and nontender Auscultation: normal bowel sounds General: Yes no CVA tenderness Back/Spine/Pelvis Back: no CVA tenderness Thoracic/Lumbar Spine: No lumbar spinal tenderness Skin Rashes: no rashes Extrem General: Yes no clubbing, cyanosis or edema Results Reviewed Results Reviewed: Laboratory Tests 07/04/23 07/04/23 08:39 08:40 WBC 4.2 L Hgb 14.5 Hct 42.9 Plt Count 208 Sodium 140 Potassium 4.2 Creatinine 0.98 Estimated GFR > 60 Fasting Glucose 89 Calcium 9.8 AST 21 ALT 18 Triglycerides 113 Cholesterol 177 LDL Cholesterol, Calc 117 H HDL Cholesterol 38 L PSA Screen 0.85 25-OH Vitamin D Total 37.1 TSH 1.67 Ur Specific [place] 1.020 Urine Protein Negative Urine Glucose (UA) Negative Urine Blood Negative Urine Nitrite Negative Ur Leukocyte Esterase Negative Assessment and Plan Assessment & Plan (1) Pure hypercholesterolemia: Code(s): E78.00 - Pure hypercholesterolemia, unspecified Plan: Results of his labs done back in June 2023 reviewed and discussed with patient - his LDL cholesterol is still at 117 mg/dl most recently Reinforced low cholesterol diet - goal is again an LDL cholesterol <100 mg/dl Continue Atorvastatin 20 mg QD Will recheck his labs and fasting lipids in 6 months for follow up (2) Gout: Code(s): M10.9 - Gout, unspecified Qualifiers: Gout site: toe Gout etiology: idiopathic Chronicity: acute Laterality: unspecified laterality Qualified Code(s): M10.079 - Idiopathic gout, unspecified ankle and foot Plan: He has had no acute gout flares lately Serum uric acid was at 7.7 on his labs done previously Reinforced low purine diet Continue Allopurinol 100 mg QD and Colchicine 0.6 mg BID Will recheck his serum uric acid level in 6 months for follow up (3) Leucopenia: Comment: WBC count has been slightly low for over 10 years Code(s): D72.819 - Decreased white blood cell count, unspecified Qualifiers: Leukopenia type: unspecified Qualified Code(s): D72.819 - Decreased white blood cell count, unspecified Plan: Chronic; stable He was seen and evaluated by hematology a few months ago and advised that he has chronic leucopenia, which is benign and in the absence of any concerning symptoms, will just need to continue monitoring his CBC yearly No interventions or further work ups are recommended at this time (4) Biatrial enlargement: Code(s): I51.7 - Cardiomegaly Plan: He was seen by cardiology for further evaluation of his moderate biatrial enlargement seen incidentally on his echocardiogram in February 2023 Patient has been asymptomatic so far He underwent stress testing and extended Holter monitoring a few months ago and both came out normal/negative He has a follow up appt with cardiology in a few weeks to discuss his results and any other potential recommendations (5) Orthostatic dizziness: Code(s): R42 - Dizziness and giddiness Plan: This appears to have resolved with no recent recurrence His EKG came out normal, with mild bradycardia but no acute ST-T wave changes His echocardiogram done on 02/13/2023 revealed a normal LV systolic function, with calculated EF at 59%, with moderate biatrial enlargement and mild calcification of the aortic valve with NO other valvular pathology seen He was seen and evaluated further for these by cardiology and work ups so far have been negative (6) Impingement of right shoulder: Code(s): M25.811 - Other specified joint disorders, right shoulder Plan: This has also resolved with physical therapy and has not recurred since (7) Overweight (BMI 25.0-29.9): Code(s): E66.3 - Overweight Plan: Reinforced diet/exercise as tolerated/lose weight Plan To return in 6 months for his next annual physical examination Orders: Orders Vitamin D 25-OH Total 6 Months E55.9 - Vitamin D deficiency, unspecified, Z00.00 - Encounter for general adult medical examination without abnormal findings Prostate Specific Antigen Scr 6 Months Z00.00 - Encounter for general adult medical examination without abnormal findings Complete Blood Count Auto Diff 6 Months D64.9 - Anemia, unspecified, Z00.00 - Encounter for general adult medical examination without abnormal findings Comprehensive [place]. Panel Fast 6 Months E78.00 - Pure hypercholesterolemia, unspecified, Z00.00 - Encounter for general adult medical examination without abnormal findings Lipid Panel 6 Months E78.00 - Pure hypercholesterolemia, unspecified, Z00.00 - Encounter for general adult medical examination without abnormal findings UA CC w/rflx Micro + Cult 6 Months R30.0 - Dysuria, Z00.00 - Encounter for general adult medical examination without abnormal findings TSH reflex Free T4 6 Months E78.00 - Pure hypercholesterolemia, unspecified, Z00.00 - Encounter for general adult medical examination without abnormal findings Uric Acid 6 Months M10.9 - Gout, unspecified Coding Level of Care Code Est Pt Level 4 (02657) Diagnoses Pure hypercholesterolemia E78.00 Acute idiopathic gout involving toe, unspecified laterality M10.079 Gout site: toe Gout etiology: idiopathic Chronicity: acute Laterality: unspecified laterality Leukopenia, unspecified type D72.819 Leukopenia type: unspecified Biatrial enlargement I51.7 Orthostatic dizziness R42 Impingement of right shoulder M25.811 Overweight (BMI 25.0-29.9) E66.3
== END 2024-01-04 13:59 | disposition home or self-care (01) ==
PROVIDERS: Visit Provider Internal Medicine
DX: E78.00 Pure hypercholesterolemia, unspecified (principal); M10.079 Idiopathic gout, unspecified ankle and foot; D72.819 Decreased white blood cell count, unspecified; I51.7 Cardiomegaly; R42 Dizziness and giddiness; M25.811 Other specified joint disorders, right shoulder; E66.3 Overweight
CPT/HCPCS: 99214

== ENCOUNTER 2024-01-30 13:36 | Outpatient (AMB) | payer OTHER, SELFPAY ==
[2024-01-30 13:50] VITALS: BP 110/60; PULSE 58; BMI 26.9
--- NOTE | 2024-01-30 13:50 | A.OFFVIS_ITS ---
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 Recently seen in consultation regarding biatrial enlargement on echocardiogram. Patient himself does not have any history of cardiac issues including coronary disease,myocardial infarction or cardiomyopathy. It seems that he was getting orthostatic dizziness type symptoms. That apparently workup. Otherwise, no anginal-type symptoms or in fact anything cardiac related. He states he is extremely active at baseline including several activities like walking out in the gym, bicycling, hiking, golfing essentially every day. No history of obstructive sleep apnea. Since last seen, he states he feels fine. No cardiac complaints whatsoever. [facility] Medical History (Updated 01/04/24 @ 14:05 by Luis Araiza MD) Biatrial enlargement Leucopenia Overweight (BMI 25.0-29.9) Pure hypercholesterolemia Gout Surgical History S/P LASIK surgery of both eyes Family History Father Stroke Mother Hyperlipidemia Other Substance abuse Social History Household Members: Spouse and Family Household Members Other:: 2 kids Housing: House Alcohol intake: current Alcohol intake frequency: a few times a week Alcohol type: beer Patient Tobacco Use Status: Never used Tobacco e-Cigarette/Vaping Use: Never Used Second Hand Smoke Exposure: No service: No Current occupational status: employed Cognitive needs: No Hearing needs: No Vision needs: No Review of Systems Const Denies chills, Denies fatigue, Denies fever(s), Denies weight gain and Denies weight loss ENT Denies dizziness Card Denies chest pain, Denies leg edema, Denies lightheadedness, Denies palpitations, Denies dyspnea on exertion, Denies orthopnea and Denies other Resp Denies cough and Denies dyspnea on exertion GI Denies hematochezia and Denies change in stool character Musc Denies abnormal gait, Denies muscle weakness, Denies numbness, Denies radiating pain into limb and Denies tingling Neuro Denies abnormal gait, Denies dizziness, Denies numbness and Denies tingling Endo Denies fatigue and Denies palpitations Physical Exam Vital Signs: Last Vital Signs Pulse 58 01/30/24 13:50 BP 110/60 01/30/24 13:50 BMI result Body Mass Index 26.9 Const General: comfortable and no acute distress Orientation/consciousness: patient oriented x3 HEENT Other: Unremarkable Head: Yes normal to inspection Neck Neck: Yes normal visual inspection Chest Chest palpation & inspection: normal inspection of the chest Resp Auscultation: clear to auscultation bilaterally Cardio Palpation: normal PMI Heart sounds: S1 normal heart sound present, S2 normal heart sound present, no gallops, no murmurs and no rubs GI Palpation (GI): Soft to palpation Back/Spine/Pelvis Other: unremarkable Skin General skin exam: no rashes or lesions noted Neuro General: patient oriented x3 Extrem General: Yes normal to inspection Psych Mental Status: mental status grossly normal Assessment & Plan Assessment & Plan (1) Bradycardia: Code(s): R00.1 - Bradycardia, unspecified Category: Medical (2) Biatrial enlargement: Code(s): I51.7 - Cardiomegaly Category: Medical Plan Cardiac studies reviewed. Baseline EKG had sinus bradycardia; less likely low atrial or junctional. Echocardiogram with LVEF of 59%. Normal peak global longitudinal strain. Normal diastolic function. Moderate biatrial enlargement. Of note, even a prior echocardiogram from 2015 had biatrial enlargement. In the Holter monitor, underlying rhythm is sinus with an average rate of 61/Min. Frequent sinus bradycardia noted. In the exercise stress test, able to do 17.2 Mets without any symptoms. Normal chronotropic response. Overall, sinus bradycardia as well as the biatrial enlargement likely related to athletic lifestyle. No specific management for the above. Otherwise, no restrictions either. We will check him back in 1 year. Total time spent including review of data, counseling, documentation, coordination of care-32 minutes. Coding Level of Care Code Est Pt Level 4 (79551) Diagnoses Bradycardia R00.1 Biatrial enlargement I51.7
== END 2024-01-30 14:13 | disposition home or self-care (01) ==
PROVIDERS: PCP Internal Medicine; Visit Provider Internal Medicine
DX: R00.1 Bradycardia, unspecified (principal); I51.7 Cardiomegaly
CPT/HCPCS: 99214

== ENCOUNTER → 2024-01-30 13:36 | Outpatient (BNVA) | payer OTHER, SELFPAY | PROVIDERS: PCP Internal Medicine; Visit Provider Internal Medicine ==

== ENCOUNTER 2024-06-24 07:47 | Outpatient (REF) | payer OTHER, SELFPAY ==
[2024-06-24 07:59] LABS: MANUAL DIFF FLAG NO
[2024-06-24 08:14] LABS: Basophils Percent Auto 0.4 % (0-2); Eosinophils Absolute Auto 0.1 X10*3/uL (0.0-0.4); Eosinophils Percent Auto 2.2 % (0-4); Hematocrit 44.7 % (42.0-52.0); Hemoglobin 15.1 g/dl (14.0-18.0); Imm Gran Abs Auto 0.01 X10*3/uL (0.00-0.03); Imm Gran Pct Auto 0.2 % (0.0-0.4); Lymphocytes Absolute Auto 2.1 X10*3/uL (1.2-4.9); Lymphocytes Percent Auto 41.6 % (20-40); Mean Corpuscular HGB Conc 33.8 g/dl (31.0-36.0); Mean Corpuscular Volume 88.7 fL (80.0-98.0); Mean Platelet Volume 8.8 fL (9.4-12.4); Monocytes Absolute Auto 0.5 X10*3/uL (0.1-1.2); Monocytes Percent Auto 10.3 % (2-11); Neutrophils Absolute Auto 2.3 x10*3/uL (2.0-8.3); Neutrophils Percent Auto 45.3 % (45-73); Platelet Count 218 X10*3/uL (160-400); Red Blood Count 5.04 X10*6/uL (4.60-5.80)
[2024-06-24 08:18] LABS: Appearance Urine Clear; Color Urine Yellow; Glucose Urine UA Negative (Negative); Leukocyte Esterase Urine Negative (Negative); Nitrite Urine Negative (Negative); Urine Blood Negative (Negative); Urine Ketones Negative (Negative); Urine Protein Negative (Neg-Trace)
[2024-06-24 09:04] LABS: Alanine Aminotransferase 31 U/L (0-40); Albumin Level 4.4 g/dL (3.5-5.0); Alkaline Phosphatase 92 U/L (39-117); Anion Gap 12 (12-20); Aspartate Amino Transferase 25 U/L (5-37); Bilirubin Total 0.6 mg/dL (0.0-1.0); Blood Urea Nitrogen 15 mg/dL (9-16); Calcium 9.5 mg/dL (8.4-10.2); Carbon Dioxide 28 mmol/L (22-29); Chloride 107 mmol/L (96-108); Cholesterol 210 mg/dL (<200); Estimated Glomerular Filt Rate > 60; Glucose Fasting 86 mg/dL (60-99); HDL Cholesterol 38 mg/dL (>40); LDL Cholesterol Calculated 135 mg/dL (<100); Potassium 4.4 mmol/L (3.3-5.1); Sodium 143 mmol/L (135-145); Total Protein 7.9 g/dL (6.5-8.0); Triglycerides 187 mg/dL (<150); Uric Acid 7.5 mg/dL (3.4-7.0)
[2024-06-24 09:19] LABS: Prostate Specific Antigen Scr 1.02 ng/mL (<0.05-4.0)
[2024-06-24 09:20] LABS: TSH reflex Free T4 2.39 uIU/mL (0.32-4.0); Vitamin D 25-OH Total 37.4 ng/mL (>30)
== END 2024-06-24 07:48 | disposition home or self-care (01) ==
LOC: HO.LAB 07:47
PROVIDERS: PCP Internal Medicine; Visit Provider Internal Medicine
DX: Z00.00 Encounter for general adult medical examination without abnormal findings (principal); D64.9 Anemia, unspecified; E78.00 Pure hypercholesterolemia, unspecified; M10.9 Gout, unspecified; E55.9 Vitamin D deficiency, unspecified; R30.0 Dysuria; Z12.5 Encounter for screening for malignant neoplasm of prostate
CPT/HCPCS: 36415; 80053; 80061; 81003; 82306; 84153; 84443; 84550; 85025

== ENCOUNTER 2024-06-25 13:47 | Outpatient (AMB) | payer OTHER, SELFPAY ==
[2024-06-25 14:16] VITALS: BP 110/74; PULSE 53; O2SAT 94; BMI 28.8
--- NOTE | 2024-06-25 14:16 | A.OFFPC_ITS ---
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 Required: No Accompanied by: Self / Same As Patient Allergies No Known Allergies Allergy (Verified 06/25/24 14:34) Medication List - Last Reconciled 06/25/24 by Luis Araiza MD allopurinol 100 mg PO DAILY atorvastatin 20 mg PO BEDTIME 90 days cholecalciferol (vitamin D3) 10 mcg PO DAILY Tobacco use date assessed: 06/25/24 Dental Screening Dental Screen Date: 06/25/24 Did you have a dental visit in the last 12 months?: Yes Did you have a dental problem in the last 6 months where you did not have access to dental care?: No Was dental information given to patient?: Patient has dentist HPI Annual P.E HPI Details Patient comes in today for his annual physical examination States that he feels okay He denies any headaches or dizziness Denies any chest pains, no shortness of breath No nausea/vomiting, no abdominal pain No change in bowel habits noted He denies any acute urinary symptoms He had his follow-up labs done yesterday - to discuss his results He had a negative Cologuard test done back in September 2022 and will be due for repeat Cologuard testing or screening colonoscopy in September of this year [facility] Medical History Biatrial enlargement Leucopenia Overweight (BMI 25.0-29.9) Pure hypercholesterolemia Gout Surgical History S/P LASIK surgery of both eyes Family History Father Stroke Mother Hyperlipidemia Other Substance abuse Social History Household Members: Spouse and Family Household Members Other:: 2 kids Housing: House Alcohol intake: current Alcohol intake frequency: a few times a week Alcohol type: beer Patient Tobacco Use Status: Never used Tobacco e-Cigarette/Vaping Use: Never Used Second Hand Smoke Exposure: No service: No Current occupational status: employed Cognitive needs: No Hearing needs: No Vision needs: No Questionnaire PHQ-9 Over the last 2 weeks, how often have you been bothered by any of the following problems? 1. Little interest or pleasure in doing things: not at all 2. Feeling down, depressed, or hopeless: not at all 3. Trouble falling or staying asleep, or sleeping too much: not at all 4. Feeling tired or having little energy: not at all 5. Poor appetite or overeating: not at all 6. Feeling bad about yourself - or that you are a failure or have let yourself or your family down: not at all 7. Trouble concentrating on things, such as reading the newspaper or watching television: not at all 8. Moving or speaking so slowly that other people could have noticed. Or the opposite - being so fidgety or restless that you have been moving around a lot more than usual: not at all 9. Thoughts that you would be better off or of hurting yourself in some way: not at all Total score: 0 Depression Screening Interpretation: Negative Depression Screening Done: Yes 99091 - PHQ-9 Billing: Yes Source: Developed by Drs. Paulo Nickerson, Vianney Bush, Peewee Hameed and colleagues, with an educational eliana from [employer]. Thrive Questionnaire Date Thrive assessed: 06/25/24 I am a: Patient What is your living situation today?: I have a steady place to live Within the past 12 months, did the food you bought not last and you didn't have the money to get more?: Never true Within the past 12 months, did you worry whether your food would run out before you got money to buy more?: Never true Do you have trouble paying for medicines?: No Do you have trouble getting transportation to medical appointments?: No Do you have trouble paying your heating and electricity bill?: No Do you have trouble taking care of your child, family member or friend?: No Do you have trouble with day-to-day activities such as bathing, preparing meals, shopping, managing finances, etc.?: No Are you currently unemployed and looking for a job?: No Are you interested in more education?: No Please select the resources that you would like help with: None Currently or been in a relationship where the following occur: No concerns reported THRIVE Score: 0 AUDIT C Alcohol Use Questionnaire (AUDIT-C) 1. How often do you have a drink containing alcohol?: 2-4 times a month 2. How many drinks containing alcohol do you have on a typical day when you are drinking?: 3 or 4 3. How often do you have six or more drinks on one occasion?: Less than monthly Total Score: 4 Score Reviewed/Action Taken: Yes JOSE A-7 AMB Questionnaire JOSE A-7 Date JOSE A - 7 assessed: 06/25/24 Feeling nervous, anxious, or on edge: 1 = Several days Not being able to stop or control worryin = Several days Worrying too much about different things: 1 = Several days Trouble relaxin = Not at all Being so restless that it is hard to sit still: 0 = Not at all Becoming easily annoyed or irritable: 0 = Not at all Feeling afraid as if something awful might happen: 0 = Not at all Total JOSE A-7 score (0-4 normal; 5-9 mild; 10-14 moderate; 15-21 severe): 3 Source: Developed by Drs. Paulo Nickerson, Vianney Bush, Peewee Hameed and colleagues, with an educational eliana from [employer]. Review of Systems Const Denies chills, Denies fatigue, Denies fever(s), Denies headache(s), Denies ma laise and Denies weakness Eyes Denies blurry vision, Denies change in vision, Denies irritation and Denies itchy eyes ENT Denies dysphagia, Denies dizziness, Denies otalgia, Denies headache(s), Denies nasal congestion, Denies neck pain, Denies odynophagia and Denies sore throat Card Denies chest pain, Denies rapid heart rate, Denies irregular heart rhythm, Denies palpitations and Denies dyspnea Resp Denies chest congestion, Denies cough, Denies dyspnea and Denies wheezing GI Denies abdominal pain, Denies bloating, Denies constipation, Denies dysphagia, Denies heartburn, Denies diarrhea, Denies nausea, Denies odynophagia and Denies vomiting Denies hematuria, Denies difficulty urinating, Denies dysuria, Denies urinary frequency and Denies urinary urgency Musc Denies back pain, Denies arthralgias, Denies joint swelling, Denies muscle weakness and Denies neck pain Skin/Breast Denies change in pigmentation, Denies lesions, Denies rash and Denies unusual bruising Neuro Denies dizziness, Denies headache(s), Denies paresthesias and Denies weakness Endo Denies fatigue and Denies palpitations Aller/Immun Denies itchy eyes and Denies wheezing Physical exam (Primary Care) Vital Signs: Last Vital Signs Pulse 53 06/25/24 14:16 BP 110/74 06/25/24 14:16 Pulse Ox 94 06/25/24 14:16 Oxygen Delivery Method Room Air 06/25/24 14:16 BMI result Body Mass Index 28.8 Tobacco/Smoking Status: Tobacco use Status Tobacco use date assessed 06/25/24 06/25/24 14:22 Patient Tobacco Use Status Never used Tobacco 06/25/24 14:22 e-Cigarette/Vaping Use Never Used 06/25/24 14:22 PHQ-9: PHQ-9 Score PHQ-9: Total score 0 06/25/24 14:37 Depression Screening Interpretation: Negative Thrive Assessment: Date of Thrive Assessment Date Thrive assessed 06/25/24 06/25/24 14:22 Currently or been in a relationship where the following occur: No concerns reported Const General: no acute distress, alert and awake Orientation/consciousness: patient oriented x3 HENMT Head: Yes normocephalic and Yes atraumatic Ears: external ears normal, TM's normal bilaterally and EAC's normal General nose exam: No nasal discharge present Face and sinus: Yes normal facial exam and Yes sinuses nontender Teeth and gingiva: dentition normal Throat: Yes posterior oropharynx normal and Yes tonsils normal (no TP congestion) Eyes Eyelids: Yes eyelids normal Conjunctivae: conjunctivae normal Pupils: Equal, round and reactive pupils present EOM: EOMs intact bilaterally Neck Neck: Yes no lymphadenopathy and Yes supple Thyroid: Thyroid normal Resp Auscultation: clear to auscultation bilaterally, no rales and no wheezes Cardio Rate: regular rate Rhythm: regular rhythm Heart sounds: no murmurs GI Palpation (GI): Soft to palpation, nontender and No hepatosplenomegaly present Auscultation: normal bowel sounds General: Yes no CVA tenderness Back/Spine/Pelvis Back: no CVA tenderness Thoracic/Lumbar Spine: thoracic and lumbar spine normal to inspection Skin Lesions: no lesions Rashes: no rashes Neuro General: patient oriented x3, moves all extremities, no focal motor deficits and CN's II-XI intact bilaterally Cranial nerves: Yes Equal, round and reactive pupils present Cognition (Neuro): normal cognition Gait exam (Neuro): Normal gait present Extrem General: Yes no clubbing, cyanosis or edema Results Reviewed Results Reviewed: Laboratory Tests 06/24/24 06/24/24 07:52 07:57 WBC 5.0 Hgb 15.1 Hct 44.7 Plt Count 218 Sodium 143 Potassium 4.4 Creatinine 0.95 Estimated GFR > 60 Fasting Glucose 86 Uric Acid 7.5 H Calcium 9.5 AST 25 ALT 31 Triglycerides 187 H Cholesterol 210 H LDL Cholesterol, Calc 135 H HDL Cholesterol 38 L PSA Screen 1.02 25-OH Vitamin D Total 37.4 TSH 2.39 Ur Specific [place] 1.020 Urine Protein Negative Urine Glucose (UA) Negative Urine Blood Negative Urine Nitrite Negative Ur Leukocyte Esterase Negative Coding Level of Care Code Est Pt Prev Care 40-64y(20860) Diagnoses Annual physical exam Z00.00 Pure hypercholesterolemia E78.00 Acute idiopathic gout involving toe, unspecified laterality M10.079 Gout site: toe Gout etiology: idiopathic Chronicity: acute Laterality: unspecified laterality Leukopenia, unspecified type D72.819 Leukopenia type: unspecified Biatrial enlargement I51.7 Overweight (BMI 25.0-29.9) E66.3 Colon cancer screening Z12.11 Additional Codes PHQ-9 - 72360 - PHQ-9 Billing: Yes ([id number]) Assessment & Plan Assessment & Plan (1) Annual physical exam: Code(s): Z00.00 - Encounter for general adult medical examination without abnormal findin gs Category: Medical Plan: Results of his labs done yesterday reviewed and discussed with patient He had a negative Cologuard test done back in September 2022 and will be due for repeat Cologuard testing or screening colonoscopy in September of this year (2) Pure hypercholesterolemia: Code(s): E78.00 - Pure hypercholesterolemia, unspecified Category: Medical Plan: He is advised that his cholesterol levels have increased from previous on his recent labs, with his total cholesterol now at 210 mg/dL and LDL cholesterol at 135 mg/dL Reinforced low-cholesterol diet Continue Atorvastatin 20 mg QD for now but advised that if his numbers do not improve significantly over the next few months, we should consider increasing his dosage to 40 mg daily Will recheck his labs and fasting lipids in 6 months for follow-up (3) Gout: Code(s): M10.9 - Gout, unspecified Category: Medical Qualifiers: Gout site: toe Gout etiology: idiopathic Chronicity: acute Laterality: unspecified laterality Qualified Code(s): M10.079 - Idiopathic gout, unspecified ankle and foot Plan: His serum uric acid level is still slightly elevated at 7.5 mg/dL He has had no acute gout flares lately Reinforced low purine diet Continue Allopurinol 100 mg QD; he used to also take Colchicine 0.6 mg BID when he was experiencing acute gout flares Will recheck his serum uric acid level in 6 months for follow up (4) Leucopenia: Comment: WBC count has been slightly low for over 10 years Code(s): D72.819 - Decreased white blood cell count, unspecified Category: Medical Qualifiers: Leukopenia type: unspecified Qualified Code(s): D72.819 - Decreased white blood cell count, unspecified Plan: Chronic; stable His WBC count was actually normal on recent labs at 5.0 He was seen and evaluated by hematology last year and was advised that he has chronic leucopenia, which is benign and in the absence of any concerning symptoms, we just need to continue monitoring his CBC yearly No interventions or further work ups are recommended at this time (5) Biatrial enlargement: Code(s): I51.7 - Cardiomegaly Category: Medical Plan: He was seen by cardiology for further evaluation of his moderate biatrial enlargement seen incidentally on his echocardiogram done in February 2023 Patient has been completely asymptomatic He underwent stress testing and extended Holter monitoring last year and both came out normal/negative except for sinus bradycardia He was advised by cardiology that his sinus bradycardia as well as the biatrial enlargement seen on echocardiogram are likely related to his athletic lifestyle, and no specific management for the above are recommended at this time He will just see Cardiology for routine follow-up in 1 year (6) Overweight (BMI 25.0-29.9): Code(s): E66.3 - Overweight Category: Medical Plan: Reinforced diet/exercise as tolerated/lose weight (7) Colon cancer screening: Comment: No GI concerns No Fam hx GI cancers Neg cologuard 3 years ago Disc. options- cologuard reasonable Code(s): Z12.11 - Encounter for screening for malignant neoplasm of colon Category: Medical Plan: Patient had a negative Cologuard back in September 2022 and he will be due for repeat Cologuard testing or screening colonoscopy in a few months in September 2024 Patient has opted to go for a screening colonoscopy this time - referral to GI made out to see him for a screening colonoscopy Plan Follow up in 6 months Orders: Orders Comprehensive [place]. Panel Fast 6 Months E78.00 - Pure hypercholesterolemia, unspecified UA CC w/rflx Micro + Cult 6 Months R30.0 - Dysuria Vitamin D 25-OH Total 6 Months E55.9 - Vitamin D deficiency, unspecified Complete Blood Count Auto Diff 6 Months D64.9 - Anemia, unspecified Lipid Panel 6 Months E78.00 - Pure hypercholesterolemia, unspecified TSH reflex Free T4 6 Months E78.00 - Pure hypercholesterolemia, unspecified Referrals Gastroenterology Referral Z12.11 - Encounter for screening for malignant neoplasm of colon
== END 2024-06-25 15:04 | disposition home or self-care (01) ==
PROVIDERS: PCP Internal Medicine; Visit Provider Internal Medicine
DX: Z00.00 Encounter for general adult medical examination without abnormal findings (principal); E78.00 Pure hypercholesterolemia, unspecified; M10.079 Idiopathic gout, unspecified ankle and foot; D72.819 Decreased white blood cell count, unspecified; I51.7 Cardiomegaly; E66.3 Overweight; Z12.11 Encounter for screening for malignant neoplasm of colon

== ENCOUNTER → 2024-06-25 13:47 | Outpatient (BNVA) | payer OTHER, SELFPAY | PROVIDERS: PCP Internal Medicine; Visit Provider Internal Medicine | DX: Z00.00 Encounter for general adult medical examination without abnormal findings (principal); E78.00 Pure hypercholesterolemia, unspecified; M10.079 Idiopathic gout, unspecified ankle and foot; D72.819 Decreased white blood cell count, unspecified; I51.7 Cardiomegaly; E66.3 Overweight; Z68.28 Body mass index [BMI] 28.0-28.9, adult; Z79.899 Other long term (current) drug therapy | CPT/HCPCS: 96127 ==

== ENCOUNTER 2025-02-18 07:11 | Outpatient (REF) | payer OTHER, SELFPAY ==
--- OUTSIDE RECORDS SUMMARY | 2025-02-18 07:14 | XMS_ITS | Patient Health Record ---
Author Organization [facility] Address [address] [place] [address] Care Team Providers Care [employer] Name Role Phone Jose G ROLON, [place] Primary Care Provider Unava ilable Black, Chanda Unavailable [phone] Reason For Referral No Information Medications Medication SIG (Take, Route, Frequency, Duration) Notes Start Date End Date Status Nickel Orthotic Full length . . .; Duration: . 02/23/2015 Active Problems No Known Problems Plan Of Treatment No Information Insurance Providers Payer Name Payer Address Payer Phone Subscriber Number Group Number Insured Name Patient Relationship to Insured Coverage Start Date Coverage End Date [employer] [facility] [address] [place] [address] [id number] Jay Abdalla Self - patient is the insured Medical (General) History Medical History History ICD Code Chicken pox Surgical History Surgery Date(Month/Year) laser surgery -eyes
[2025-02-18 07:18] LABS: MANUAL DIFF FLAG NO
[2025-02-18 07:36] LABS: Appearance Urine Clear; Glucose Urine UA Negative (Negative); PH 5.5 (5.0-9.0); Specific Gravity - Urine <= 1.005 (1.005-1.025)
[2025-02-18 08:08] LABS: Hematocrit 42.4 % (42.0-52.0); Hemoglobin 14.3 g/dl (14.0-18.0); Imm Gran Abs Auto 0.01 X10*3/uL (0.00-0.03); Imm Gran Pct Auto 0.2 % (0.0-0.4); Lymphocytes Absolute Auto 1.9 X10*3/uL (1.2-4.9); Mean Corpuscular HGB Conc 33.7 g/dl (31.0-36.0); Mean Corpuscular Hemoglobin 30.2 pg (27.0-33.0); Mean Corpuscular Volume 89.6 fL (80.0-98.0); NRBC Abs Auto 0.000 X10*3/uL (0.0-0.012); NRBC Pct Auto 0.0 /100WBC (0.0-0.2); Platelet Count 215 X10*3/uL (160-400); Red Blood Count 4.73 X10*6/uL (4.60-5.80); White Blood Count 5.1 X10*3/uL (4.8-10.8)
[2025-02-18 08:41] LABS: Alanine Aminotransferase 26 U/L (0-40); Albumin Level 4.6 g/dL (3.5-5.0); Alkaline Phosphatase 88 U/L (39-117); Anion Gap 14 (12-20); Aspartate Amino Transferase 21 U/L (5-37); Blood Urea Nitrogen 15 mg/dL (9-16); Calcium 9.4 mg/dL (8.4-10.2); Carbon Dioxide 25 mmol/L (22-29); Chloride 107 mmol/L (96-108); Cholesterol 204 mg/dL (<200); Estimated Glomerular Filt Rate > 60; HDL Cholesterol 35 mg/dL (>40); Potassium 3.9 mmol/L (3.3-5.1); Sodium 142 mmol/L (135-145); Total Protein 7.1 g/dL (6.5-8.0); Triglycerides 189 mg/dL (<150)
== END 2025-02-18 07:12 | disposition home or self-care (01) ==
LOC: HO.LAB 07:11
PROVIDERS: PCP Internal Medicine; Visit Provider Internal Medicine
DX: R30.0 Dysuria (principal); E55.9 Vitamin D deficiency, unspecified; E78.00 Pure hypercholesterolemia, unspecified; D64.9 Anemia, unspecified
CPT/HCPCS: 36415; 80053; 80061; 81003; 82306; 84443; 85025

== ENCOUNTER 2025-02-19 11:54 | Outpatient (AMB) | payer OTHER, SELFPAY ==
[2025-02-19 11:56] VITALS: BP 126/82; PULSE 50; O2SAT 99; BMI 27.9
--- NOTE | 2025-02-19 11:56 | MHC.PC.OV ---
Vital Signs 02/19/25 11:56 Height 6 ft 2 in Weight 217 lb 6 oz BMI 27.9 BP 126/82 Blood Pressure Location Lt brachial Position Sitting Pulse 50 Pulse Source Pulse Oximeter Pulse Oximetry (%) 99 Oxygen Delivery Method Room Air Intake Visit Reasons: hyperlipidemia, gou Mailing Specialist Required: No Accompanied by: Self / Same As Patient Followed by:: Allergies No Known Allergies Allergy (Verified 02/19/25 12:34) Medication List - Last Reconciled 02/19/25 by Luis Araiza MD allopurinol 100 mg PO DAILY atorvastatin 20 mg PO BEDTIME 90 days cholecalciferol (vitamin D3) 10 mcg PO DAILY Tobacco use date assessed: 02/19/25 Dental Screening Dental Screen Date: 02/19/25 Did you have a dental visit in the last 12 months?: Yes Did you have a dental problem in the last 6 months where you did not have access to dental care?: No Was dental information given to patient?: Patient has dentist HPI hyperlipidemia, gou HPI Details Patient comes in today for his follwo up visit States that he feels okay He denies any headaches or dizziness Denies any chest pains, no shortness of breath No nausea/vomiting, no abdominal pain No change in bowel habits noted He had his follow-up labs done yesterday - to discuss his results FOR[facility]LY [facility], [facility] Medical History Biatrial enlargement Leucopenia Overweight (BMI 25.0-29.9) Pure hypercholesterolemia Gout Surgical History S/P LASIK surgery of both eyes Family History Father Stroke Mother Hyperlipidemia Other Substance abuse Social History Household Members: Spouse and Family Household Members Other:: 2 kids Housing: House Alcohol intake: current Alcohol intake frequency: a few times a week Alcohol type: beer Patient Tobacco Use Status: Never used Tobacco e-Cigarette/Vaping Use: Never Used Second Hand Smoke Exposure: No service: No Current occupational status: employed Cognitive needs: No Hearing needs: No Vision needs: No Questionnaire PHQ-9 Over the last 2 weeks, how often have you been bothered by any of the following problems? 1. Little interest or pleasure in doing things: not at all 2. Feeling down, depressed, or hopeless: not at all 3. Trouble falling or staying asleep, or sleeping too much: not at all 4. Feeling tired or having little energy: not at all 5. Poor appetite or overeating: not at all 6. Feeling bad about yourself - or that you are a failure or have let yourself or your family down: not at all 7. Trouble concentrating on things, such as reading the newspaper or watching television: not at all 8. Moving or speaking so slowly that other people could have noticed. Or the opposite - being so fidgety or restless that you have been moving around a lot more than usual: not at all 9. Thoughts that you would be better off or of hurting yourself in some way: not at all Total score: 0 Depression Screening Interpretation: Negative Depression Screening Done: Yes 99135 - PHQ-9 Billing: Yes Source: Developed by Drs. Paulo Nickerson, Vianney Bush, Peewee Hameed and colleagues, with an educational eliana from [employer]. Thrive Questionnaire Date Thrive assessed: 06/24/24 I am a: Patient What is your living situation today?: I have a steady place to live Within the past 12 months, did the food you bought not last and you didn't have the money to get more?: Never true Within the past 12 months, did you worry whether your food would run out before you got money to buy more?: Never true Do you have trouble paying for medicines?: No Do you have trouble getting transportation to medical appointments?: No Do you have trouble paying your heating and electricity bill?: No Do you have trouble taking care of your child, family member or friend?: No Do you have trouble with day-to-day activities such as bathing, preparing meals, shopping, managing finances, etc.?: No Are you currently unemployed and looking for a job?: No Are you interested in more education?: No Please select the resources that you would like help with: None Currently or been in a relationship where the following occur: No concerns reported THRIVE Score: 0 AUDIT C Alcohol Use Questionnaire (AUDIT-C) 1. How often do you have a drink containing alcohol?: 2-4 times a month 2. How many drinks containing alcohol do you have on a typical day when you are drinking?: 3 or 4 3. How often do you have six or more drinks on one occasion?: Less than monthly Total Score: 4 Score Reviewed/Action Taken: Yes JOSE A-7 AMB Questionnaire JOSE A-7 Date JOSE A - 7 assessed: 06/25/24 Source: Developed by Drs. Paulo Nickerson, Vianney Bush, Peewee Hameed and colleagues, with an educational eliana from [employer]. Review of Systems Const Denies chills, Denies fatigue, Denies fever(s) and Denies headache(s) ENT Denies dysphagia, Denies dizziness, Denies otalgia, Denies headache(s), Denies neck pain, Denies odynophagia and Denies sore throat Card Denies chest pain, Denies irregular heart rhythm, Denies palpitations and Denies dyspnea Resp Denies chest congestion, Denies cough and Denies dyspnea GI Denies abdominal pain, Denies constipation, Denies dysphagia, Denies heartburn, Denies diarrhea, Denies nausea, Denies odynophagia and Denies vomiting Denies difficulty urinating, Denies dysuria and Denies urinary frequency Musc Denies back pain, Denies arthralgias and Denies neck pain Skin/Breast Denies rash Neuro Denies dizziness, Denies headache(s) and Denies paresthesias Endo Denies fatigue and Denies palpitations Physical exam (Primary Care) Vital Signs: Last Vital Signs Pulse 50 02/19/25 11:56 BP 126/82 02/19/25 11:56 Pulse Ox 99 02/19/25 11:56 Oxygen Delivery Method Room Air 02/19/25 11:56 BMI result Body Mass Index 27.9 Tobacco/Smoking Status: Tobacco use Status Tobacco use date assessed 02/19/25 02/19/25 12:00 Patient Tobacco Use Status Never used Tobacco 02/19/25 12:00 e-Cigarette/Vaping Use Never Used 02/19/25 12:00 PHQ-9: PHQ-9 Score PHQ-9: Total score 0 02/19/25 12:35 Depression Screening Interpretation: Negative Thrive Assessment: Date of Thrive Assessment Date Thrive assessed 06/24/24 02/19/25 12:00 Currently or been in a relationship where the following occur: No concerns reported Const General: no acute distress and alert HENMT Ears: TM's normal bilaterally and EAC's normal Throat: Yes posterior oropharynx normal and Yes tonsils normal (no TP congestion) Neck Neck: Yes no lymphadenopathy and Yes supple Thyroid: Thyroid normal Resp Auscultation: clear to auscultation bilaterally, no rales and no wheezes Cardio Rate: regular rate Rhythm: regular rhythm Heart sounds: no murmurs GI Palpation (GI): Soft to palpation and nontender Auscultation: normal bowel sounds General: Yes no CVA tenderness Back/Spine/Pelvis Back: no CVA tenderness Thoracic/Lumbar Spine: thoracic and lumbar spine normal to inspection Skin Rashes: no rashes Extrem General: Yes no clubbing, cyanosis or edema Results Reviewed Results Reviewed: Laboratory Tests 02/18/25 02/18/25 07:17 07:18 WBC 5.1 Hgb 14.3 Hct 42.4 Plt Count 215 Sodium 142 Potassium 3.9 Creatinine 1.00 Estimated GFR > 60 Fasting Glucose 86 Calcium 9.4 AST 21 ALT 26 Triglycerides 189 H Cholesterol 204 H LDL Cholesterol, Calc 132 H HDL Cholesterol 35 L 25-OH Vitamin D Total 39.6 TSH 2.59 Ur Specific [place] <= 1.005 Urine Protein Negative Urine Glucose (UA) Negative Urine Blood Negative Urine Nitrite Negative Ur Leukocyte Esterase Negative Coding Level of Care Code Est Pt Level 4 (59719) Diagnoses Pure hypercholesterolemia E78.00 Acute idiopathic gout involving toe, unspecified laterality M10.079 Chronicity: acute Gout etiology: idiopathic Gout site: toe Laterality: unspecified laterality Leukopenia, unspecified type D72.819 Leukopenia type: unspecified Biatrial enlargement I51.7 Overweight (BMI 25.0-29.9) E66.3 Additional Codes PHQ-9 - 25240 - PHQ-9 Billing: Yes ([id number]) Assessment & Plan Assessment & Plan (1) Pure hypercholesterolemia: Code(s): E78.00 - Pure hypercholesterolemia, unspecified Category: Medical Plan: Results of his labs done yesterday reviewed and discussed with patient He is advised that his cholesterol levels are still elevated and have hardly improved from previous - his total cholesterol is still at 204 mg/dL and LDL cholesterol at 132 mg/dL Reinforced low-cholesterol diet Will go ahead and increase his Atorvastatin from 20 mg QD to 40 mg QD Will recheck his labs and fasting lipids in 6 months for follow-up (2) Gout: Code(s): M10.9 - Gout, unspecified Category: Medical Qualifiers: Chronicity: acute Gout etiology: idiopathic Gout site: toe Laterality: unspecified laterality Qualified Code(s): M10.079 - Idiopathic gout, unspecified ankle and foot Plan: His serum uric acid level was slightly elevated at 7.5 mg/dL when last checked a few months ago He has had no acute gout flares lately Reinforced low purine diet Continue Allopurinol 100 mg QD; he used to also take Colchicine 0.6 mg BID when he was experiencing acute gout flares Will recheck his serum uric acid level in 6 months for follow up (3) Leucopenia: Comment: WBC count has been slightly low for over 10 years Code(s): D72.819 - Decreased white blood cell count, unspecified Category: Medical Qualifiers: Leukopenia type: unspecified Qualified Code(s): D72.819 - Decreased white blood cell count, unspecified Plan: Chronic; stable His WBC count was normal on recent labs at 5.1 He was seen and evaluated by hematology last year and was advised that he has chronic leucopenia, which is benign and in the absence of any concerning symptoms, we just need to continue monitoring his CBC yearly No interventions or further work ups are recommended at this time (4) Biatrial enlargement: Code(s): I51.7 - Cardiomegaly Category: Medical Plan: He was seen by cardiology for further evaluation of his moderate biatrial enlargement seen incidentally on his echocardiogram done in February 2023 Patient has been completely asymptomatic He underwent stress testing and extended Holter monitoring last year and both came out normal/negative except for sinus bradycardia He was advised by cardiology that his sinus bradycardia as well as the biatrial enlargement seen on echocardiogram are likely related to his athletic lifestyle, and no specific management for the above are recommended at this time He will just see Cardiology for routine follow-up in 1 year (5) Overweight (BMI 25.0-29.9): Code(s): E66.3 - Overweight Category: Medical Plan: Reinforced diet/exercise as tolerated/lose weight Plan To return in 6 months for his next annual physical examination Orders: Orders Comprehensive Nenzel. Panel Fast 6 Months E78.00 - Pure hypercholesterolemia, unspecified, Z00.00 - Encounter for general adult medical examination without abnormal findings TSH reflex Free T4 6 Months E78.00 - Pure hypercholesterolemia, unspecified, Z00.00 - Encounter for general adult medical examination without abnormal findings UA CC w/rflx Micro + Cult 6 Months R30.0 - Dysuria, Z00.00 - Encounter for general adult medical examination without abnormal findings Complete Blood Count Auto Diff 6 Months D64.9 - Anemia, unspecified, Z00.00 - Encounter for general adult medical examination without abnormal findings Lipid Panel 6 Months E78.00 - Pure hypercholesterolemia, unspecified, Z00.00 - Encounter for general adult medical examination without abnormal findings Vitamin D 25-OH Total 6 Months E55.9 - Vitamin D deficiency, unspecified, Z00.00 - Encounter for general adult medical examination without abnormal findings Prostate Specific Antigen Scr 6 Months Z00.00 - Encounter for general adult medical examination without abnormal findings Medications: Changed From atorvastatin 20 mg PO BEDTIME 90 days 90 tabs 3RF E78.00 - Pure hypercholesterolemia, unspecified To atorvastatin 40 mg PO BEDTIME 90 tabs 3RF 90 days E78.00 - Pure hypercholesterolemia, unspecified
--- OUTSIDE RECORDS SUMMARY | 2025-02-19 15:10 | XMS_ITS | Patient Health Record ---
Author Organization [facility] Address [address] [place] [address] Care Team Providers Care Bulk Station Operator Name Role Phone Jose G ROLON, [place] Primary Care Provider Unava ilable Black, Chanda Unavailable [phone] Reason For Referral No Information Medications Medication SIG (Take, Route, Frequency, Duration) Notes Start Date End Date Status Nickel Orthotic Full length . . .; Duration: . 02/23/2015 Active Problems No Known Problems Plan Of Treatment No Information Insurance Providers Payer Name Payer Address Payer Phone Subscriber Number Group Number Insured Name Patient Relationship to Insured Coverage Start Date Coverage End Date [facility] [address] [facility] [place] [address] [id number] Jay Abdalla Self - patient is the insured Medical (General) History Medical History History ICD Code Chicken pox Surgical History Surgery Date(Month/Year) laser surgery -eyes
== END 2025-02-19 12:52 | disposition home or self-care (01) ==
LOC: HO.HMCH 11:55
PROVIDERS: PCP Internal Medicine; Visit Provider Internal Medicine
DX: E78.00 Pure hypercholesterolemia, unspecified (principal); M10.079 Idiopathic gout, unspecified ankle and foot; D72.819 Decreased white blood cell count, unspecified; I51.7 Cardiomegaly; E66.3 Overweight

== ENCOUNTER → 2025-02-19 11:54 | Outpatient (BNVA) | payer OTHER, SELFPAY | PROVIDERS: PCP Internal Medicine; Visit Provider Internal Medicine | DX: M10.079 Idiopathic gout, unspecified ankle and foot (principal); E78.00 Pure hypercholesterolemia, unspecified; D72.819 Decreased white blood cell count, unspecified; I51.7 Cardiomegaly; E66.3 Overweight; Z68.27 Body mass index [BMI] 27.0-27.9, adult | CPT/HCPCS: 96127 ==

== ENCOUNTER 2025-04-08 11:27 | Outpatient (AMB) | payer OTHER, SELFPAY ==
--- NOTE | 2025-04-08 11:44 | A.OFFPC_ITS ---
Vital Signs 04/08/25 11:45 Height 6 ft 2 in Weight 220 lb 4 oz BMI 28.3 BP 134/76 Blood Pressure Location Lt brachial Position Sitting Pulse 48 L Pulse Source Pulse Oximeter Temp 97.3 F Temp Source Temporal Artery Scan Pulse Oximetry (%) 96 Oxygen Delivery Method Room Air Intake Visit Reasons: ear pain Intake Note: Patient is here to follow up on Right Ear pain. Owner Consulting Engineer Required: No Cath Lab: Not Required per policy Accompanied by: Self / Same As Patient Allergies No Known Allergies Allergy (Verified 04/08/25 11:45) Tobacco use date assessed: 04/08/25 Dental Screening Dental Screen Date: 02/19/25 HPI HPI Comments History of Present Illness Details History of Present Illness - The patient is a 54 year old individua l presenting with right ear pain that began approximately three weeks ago. - The pain is described as a constant, d ull ache that intensifies at night and radiates down to the neck. - The patient also reports experiencing postnasal drip and occasional difficulty with chewing. - The patient denies any recent swimming , air travel, or contact with sick individuals at home. - The patient has no known drug allergie s. Social History - Employment: The patient works an [employer] job at the [employer] [facility] Medical History Biatrial enlargement Leucopenia Overweight (BMI 25.0-29.9) Pure hypercholesterolemia Gout Surgical History S/P LASIK surgery of both eyes Family History Father Stroke Mother Hyperlipidemia Other Substance abuse Social History Household Members: Spouse and Family Household Members Other:: 2 kids Housing: House Alcohol intake: current Alcohol intake frequency: a few times a week Alcohol type: beer Patient Tobacco Use Status: Never used Tobacco e-Cigarette/Vaping Use: Never Used Second Hand Smoke Exposure: No service: No Current occupational status: employed Cognitive needs: No Hearing needs: No Vision needs: No Questionnaire Thrive Questionnaire Date Thrive assessed: 06/24/24 I am a: Patient What is your living situation today?: I have a steady place to live Within the past 12 months, did the food you bought not last and you didn't have the money to get more?: Never true Within the past 12 months, did you worry whether your food would run out before you got money to buy more?: Never true Do you have trouble paying for medicines?: No Do you have trouble getting transportation to medical appointments?: No Do you have trouble paying your heating and electricity bill?: No Do you have trouble taking care of your child, family member or friend?: No Do you have trouble with day-to-day activities such as bathing, preparing meals, shopping, managing finances, etc.?: No Are you currently unemployed and looking for a job?: No Are you interested in more education?: No Please select the resources that you would like help with: None Currently or been in a relationship where the following occur: No concerns reported THRIVE Score: 0 JOSE A-7 AMB Questionnaire JOSE A-7 Date JOSE A - 7 assessed: 06/25/24 Source: Developed by Drs. Paulo Nickerson, Vianney Bush, Peewee Hameed and colleagues, with an educational eliana from [employer]. Review of Systems Narrative Review of Systems - Ears: Reports right-sided ear pain for approximately three weeks, described as a dull ache. - Nose/Sinuses: Reports postnasal drip. - Mouth/Throat: Reports occasional difficulty chewing. Denies trouble swallowing. - Neck: Reports pain radiating to the neck at night. Physical exam (Primary Care) Vital Signs: Last Vital Signs Temp 97.3 F 04/08/25 11:45 Pulse 48 L 04/08/25 11:45 BP 134/76 04/08/25 11:45 Pulse Ox 96 04/08/25 11:45 Oxygen Delivery Method Room Air 04/08/25 11:45 BMI result Body Mass Index 28.3 Tobacco/Smoking Status: Tobacco use Status Tobacco use date assessed 04/08/25 04/08/25 11:49 Patient Tobacco Use Status Never used Tobacco 04/08/25 11:49 e-Cigarette/Vaping Use Never Used 04/08/25 11:49 Thrive Assessment: Date of Thrive Assessment Date Thrive assessed 06/24/24 04/08/25 11:49 Currently or been in a relationship where the following occur: No concerns reported Narrative Physical Exam General: Cooperative and healthy appearing Nutritional Appearance: Well nourished Orientation/consciousness: Patient oriented x3 Limitations: No limitations Head: Normal to inspection General: Appearance normal, both eyes and all related structures Neck: Normal visual inspection Chest: Normal palpation of entire chest wall Respiratory: Normal respiratory effort Neurology: Patient oriented x3 Coding Level of Care Code Est Pt Level 3 (26058) Complex visit Add On G2211 Diagnoses Acute serous otitis media H65.00 Assessment & Plan Assessment & Plan (1) Acute serous otitis media: Code(s): H65.00 - Acute serous otitis media, unspecified ear Plan Plan - The patient is diagnosed with a minor ear infection. - Prescribed oral amoxicillin to be taken three times a day for seven days. - Prescribed neomycin ear drops. - Advised to complete the full course of antibiotics. - Instructed to seek follow-up if symptoms do not improve. - The patient should continue with regularly scheduled appointments with Dr. Perry. Discussion Notes I informed the patient that the examination suggests a minor ear infection. I have prescribed two medications: an oral antibiotic, amoxicillin, to be taken three times daily for seven days, and neomycin ear drops. I emphasized the importance of completing the full course of antibiotics and advised the patient to contact us if there is no improvement. I also confirmed that the patient should maintain the regular follow-up schedule with Dr. Perry. Patient Instructions - Your prescriptions for amoxicillin and neomycin drops have been sent to the [facility] on [facility]. - Take the amoxicillin pill three times a day for seven days. - Use the neomycin ear drops as directed. - It is important to finish all of the antibiotic pills, even if your ear starts to feel better. - If your symptoms do not get better, please contact the office. - Please keep your regular appointment with Dr. Perry. Medications: New amoxicillin 500 mg PO Q8H 30 caps 0RF [id number] 3.5-10,000-1 mg/mL-unit/mL-% 4 drps otic (ears) Q8H 10 mL 0RF
[2025-04-08 11:45] VITALS: BP 134/76; PULSE 48; TEMP 36.3; O2SAT 96; BMI 28.3
--- OUTSIDE RECORDS SUMMARY | 2025-04-08 13:52 | XMS_ITS | Patient Health Record ---
Author Organization [facility] Address [address] [place] [address] Care Team Providers Care Microfilm Duplicating Unit Supervisor Name Role Phone Jose G ROLON, [place] Primary Care Provider Unava ilable Black, Chanda Unavailable [phone] Reason For Referral No Information Medications Medication SIG (Take, Route, Frequency, Duration) Notes Start Date End Date Status Nickel Orthotic Full length . . .; Duration: . 02/23/2015 Active Problems No Known Problems Plan Of Treatment No Information Insurance Providers Payer Name Payer Address Payer Phone Subscriber Number Group Number Insured Name Patient Relationship to Insured Coverage Start Date Coverage End Date [facility] [address] [place] [address] [id number] Jay Abdalla Self - patient is the insured Medical (General) History Medical History History ICD Code Chicken pox Surgical History Surgery Date(Month/Year) laser surgery -eyes
== END 2025-04-08 12:01 | disposition home or self-care (01) ==
LOC: HO.HMCH 11:28
PROVIDERS: PCP Internal Medicine; Visit Provider Internal Medicine
DX: H65.01 Acute serous otitis media, right ear (principal)